=== PATIENT | male | born 1970 | race Caucasian/White ===

== ENCOUNTER 2019-07-24 20:23 | Emergency (ER) | payer MEDICARE, OTHER ==
[~2019-07-24] VITALS: Ht 182.9 cm; Wt 104.2 kg
--- OUTSIDE RECORDS SUMMARY | 2019-07-24 20:31 | XMS REPORT ---
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 Activ e 125612600 Problem AIDS B20 Active 69421927 Problem Benign essential hypertension I10 Active 1032786 Problem History of CMV Z86.19 Active 21777 4002 Problem History of histoplasmosis Z86.19 Acti ve 74249942453029 Problem Generalized anxiety disorder F41.1 A ctive 02627051 Problem Histoplasmosis B39.9 Active 06020 009 Problem Former smoker Z87.891 Active 748186 6 Problem Syphilis A53.9 Active 77167414 ALLERGIES No Known Allergies ENCOUNTERS Encounter Location Date Diagnosis [address] [id number] Mar, Human immunodeficiency virus (HIV) disea se B20 ; History of CMV Z86.19 and History of histoplasmosis Z86.[address] [id number] Dec, Human immunodeficiency virus (HIV) disea se B20 ; History of CMV Z86.19 and History of histoplasmosis Z86.19 [facility] [place] [address] [place] [address] Aug, [address] [id number] Aug, AIDS B20 ; Syphilis A53.9 and High risk homosexual behavior Z72.52 [facility] [place] [address] [place] [address] May, Benign essential hypertension I10 [address] [address] Mar, [facility] [address] [facility] [place] [phone] Feb, AIDS B20 [facility] [address] [facility] [place] [phone] Feb, AIDS B20 [facility] [address] [place] [address] Jan, [facility] [address] [place] [address] Jan, [facility] [address] [place] [address] Jan, [facility] [address] [place] [address] Jan, [facility] [address] [facility] [place] [phone] Jan, [facility] [address] [id number] Jan, AIDS B20 [facility] [address] [phone] Oct, AIDS B20 [facility] [address] [id number] Aug, AIDS B20 [facility] [address] [place] [address] Aug, [facility] [address] [place] [address] Jul, Benign essential hypertension I10 [facility] [address] [place] [address] Jul, [facility] [address] [id number] May, AIDS B20 [facility] [address] [place] [address] Apr, AIDS B20 [facility] [address] [place] [address] Apr, AIDS B20 [facility] [address] [place] [address] Feb, [facility] [address] [place] [address] Dec, [facility] [address] [phone] Dec, Human immunodeficiency virus (HIV) disea se B20 [facility] [address] [id number] Sep, Human immunodeficiency virus (HIV) disea se B20 ; Benign essential hypertension I10 and Histoplasmosis B39.9 [facility] [address] [id number] June, AIDS B20 [address] [address] Mar, [facility] [address] [id number] Mar, AIDS B20 [place] [facility] [address] [place] [phone] Jan, Human immunodeficiency virus (HIV) disease B20 and Need for pneumococcal vaccine Z23 [address] [address] Dec, Essential hypertension, benign 401.1 [facility] [address] [id number] Nov, AIDS B20 [address] [address] Sep, [address] [id number] Aug, Human immunodeficiency virus (HIV) disea se B20 ; Former smoker Z87.891 and Encounter for immunization Z23 [address] [address] June, [address] [id number] Apr, Human immunodeficiency virus (HIV) disea se B20 ; Benign essential hypertension I10 and Histoplasmosis B39.[address] [address] Mar, [facility] [address] [id number] Feb, Acquired immune deficiency syndrome B20 and Screening examination for sexually transmitted disease Z11.[address] [address] Dec, [address] [place] [address] Dec, [facility] [address] [id number] Nov, Human immunodeficiency virus (HIV) disea se B20 and Benign essential hypertension I10 [facility] [place] [address] [place] [address] Sep, [facility] [place] [address] [place] [address] Sep, [facility] [place] [address] [place] [address] Sep, [address] [id number] June, Human immunodeficiency virus (HIV) disea se 042 and Need for pneumococcal vaccination V03.82 [facility] [place] [address] [place] [address] Apr, [address] [address] Apr, [address] [address] Mar, [address] [id number] Feb, Acquired immune deficiency syndrome (AID S) [address] [address] Feb, Human immunodeficiency virus (HIV) disea se [address] [address] Dec, [facility] [address] [id number] Nov, Human immunodeficiency virus (HIV) disea se 042 ; 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 and Essential hypertension, benign 401.1 [facility] [place] [address] [place] [address] Oct, Nausea & vomiting 787.01 [facility] [place] [address] [place] [address] Oct, [facility] [address] [facility] [address] [place] [phone] 1 Oct, Unspecified Histoplasmosis without mention of manifestation 115.90 [facility] [address] [place] [address] 10 Oct, 2013 [facility] [address] [place] [address] 09 Oct, 2013 Nausea & vomiting 787.01 [facility] [place] [facility] [address] [facility] [address] [place] [phone] 2 9 Sep, 2013 [facility] [place] [facility] [address] [facility] [address] [place] [phone] 2 8 Sep, 2013 [facility] [place] [facility] [address] [facility] [address] [place] [id number] 2 0 Jul, 2013 [facility] [place] [facility] [address] [facility] [address] [place] [phone] 0 7 May, 2013 [facility] [address] [place] [address] May, [facility] [address] [place] [address] Feb, [facility] [address] [place] [address] Nov, [facility] [address] [place] [address] Aug, [facility] [address] [place] [address] May, [facility] [address] [place] [address] Dec, [facility] [address] [place] [address] Sep, [facility] [address] [place] [address] June, [facility] [address] [place] [address] Mar, [facility] [place] [facility] [address] [facility] [address] [place] [phone] 0 7 Nov, 2010 IMMUNIZATIONS No Known Immunizations SOCIAL HISTORY Never Assessed REASON FOR VISIT [facility] HIV f/u PLAN OF CARE Activity Details Follow Up 3 Months, prn Reason: Pending Test Human Immunodeficiency Virus (HIV-1), Quantitative, Real-time PCR (graph) 58853 Pending Test Cytomegalovirus (CMV) Ab, Ig G Pending Test Cytomegalovirus (CMV) Ab, Ig M Pending Test Cytomegalovirus (CMV), Quant itative, Plasma, PCR 13622 Pending Test Metabolic Panel (14), Robert hernandes (CMP) 16193 Pending Test CD4/CD8 Ratio Profile 68092 Pending Test Histoplasma Galactomannan An tigen EIA, Urine 62871 VITAL SIGNS Height 72 in 2019-03-18 Weight 222 lbs 2019-03-18 Temperature 98.0 degrees Fahrenheit 2019-03-18 Heart Rate 83 /min 2019-03-18 Respiratory Rate 18 /min 2019-03-18 Oximetry 96 % 2019-03-18 BMI 30.11 kg/m2 2019-03-18 Blood pressure systolic 120 mm Hg 2019-03-18 Blood pressure diastolic 82 mm Hg 2019-03-18 MEDICATIONS Medication Instructions Dosage Frequency Start Date End Date Duration S tatus Lisinopril 20 MG TAKE 1 TABLET BY MOUTH ONCE A DAY. 30 Active BusPIRone HCl 10 MG TAKE ONE TABLET BY MOUTH 3 TIMES A DAY. 30 Active Descovy 200-25 mg Orally Once a day 1 Tablet 24h 30 Active Isentress 400 MG TAKE 1 TABLET (400 MG) BY MOUTH 2 TIMES DAILY. 30 Active RESULTS No Results PROCEDURES Procedure Date Ordered Result Body Site Billed by outside source Mar 18, 2019 INSTRUCTIONS MEDICATIONS ADMINISTERED No Known Medications MEDICAL (GENERAL) HISTORY Type Description Date Medical History AIDS Medical History Hx histoplasmosis Medical History Hx Kaposi's sarcoma Medical History HTN Medical History Anxiety Surgical History lipoma removal 2009
--- OUTSIDE RECORDS SUMMARY | 2019-07-24 20:32 | XMS REPORT ---
Author Author Tony Lizarraga [facility] eClinical[employer] Address Unknown Phone Unavailable Care Team Providers Care Lay Out Maker Name Role Phone Deana Lizarraga CP Unavailable Allergies No Known Allergies Problems Problem Type Condition ICD-9 Code Onset Dates Condition Statu s Problem Screening examination for venereal disease V74.5 Inactive Problem Need for prophylactic vaccin ation and inoculation against viral hepatitis V05.3 Inactive Problem Anxiety state, unspecified 300.00 A ctive Problem Unspecified Histoplasmosis without mention of manifest ation 115.90 Inactive Problem Kaposi's sarcoma of skin 176.0 Karin ctive Problem Acquired immune deficiency syndrome (AIDS) 042 Active Problem halfway (current) use of opiate analgesic V58.69 Active Problem Need for prophylactic vaccination and inoculation, Inf luenza V04.81 Inactive Problem Ijpplnewtp-wclueat-ryshjdazp, combined [DTP] [DtaP] V0 6.1 Inactive Problem Need for prophylactic vaccin ation against streptococcus pneumoniae (pneumococcus) V03.82 Inactive Problem Essential hypertension, benign 401.1 Active Problem Unspecified essential hypertension 401.9 Inactive Problem Elevated blood pressure reading without diagnosi s of hypertension 796.2 Inactive Medications No Known Medications Results No Known Results Summary Purpose eClinicalWorks Submission
--- OUTSIDE RECORDS SUMMARY | 2019-07-24 20:32 | XMS REPORT ---
Author Tony Costello Organization [employer] Address Unknown Phone Unavailable Care Team Providers Care Senior Manager Asset Protection Name Role Phone Bia Tineo CP Unavailable Allergies No Known Allergies Problems Problem Type Condition ICD-9 Code Onset Dates Condition Statu s Problem Screening examination for venereal disease V74.5 Inactive Problem Need for prophylactic vaccin ation and inoculation against viral hepatitis V05.3 Inactive Problem Anxiety state, unspecified 300.00 A ctive Problem Unspecified Histoplasmosis without mention of manifest ation 115.90 Inactive Problem Kaposi's sarcoma of skin 176.0 Joseph ctive Problem Acquired immune deficiency syndrome (AIDS) 042 Active 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
--- OUTSIDE RECORDS SUMMARY | 2019-07-24 20:32 | XMS REPORT ---
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 Activ e 616971001 Problem AIDS B20 Active 61495801 Problem Histoplasmosis B39.9 Active 97829 009 ALLERGIES No Information ENCOUNTERS Encounter Location Date Diagnosis [address] [address] Aug, [facility] [address] [facility] [address] [place], [place] [phone] Aug, AIDS B20 ; Syphilis A53.9 an d High risk homosexual behavior Z72.[address] [address] May, Benign essential hypertension I10 [address] [address] Mar, [facility] [address] [place] [address] S [id number] Feb, AIDS B20 [facility] [address] [place] [address] S [id number] Feb, AIDS B20 [address] [address] Jan, [address] [address] Jan, [address] [address] Jan, [facility] [address] [place] [address] Jan, [facility] [address] [place], [place] [address] S [id number] Jan, [place] [facility] [address] [place] [address] [address] [place] [phone] Jan, AIDS B20 [place] [facility] [address] [place] [address] [address] [place] [phone] Oct, AIDS B20 [facility] [facility] [address] [place] [phone] Aug, AIDS B20 [facility] [address] [place] [address], [place] [address] Aug, [facility] [address] [place] [address], [place] [address] Jul, Benign essential hypertension I10 [facility] [address] [place] [address], [place] [address] Jul, [facility] [address] [place] [phone] May, AIDS B20 [facility] [address] [place] [address], [place] [address] Apr, AIDS B20 [facility] [address] [place] [address], [place] [address] Apr, AIDS B20 [facility] [address] [place] [address] Feb, [facility] [address] [place] [address], [place] [address] Dec, [facility] [facility] [address] [place] [id number] Dec, Human immunodeficiency virus (HIV) disease B20 [facility] [address] [place] [phone] Sep, Human immunodeficiency virus (HIV) disease B20 ; Benign essential hypertension I10 and Histoplasmosis B39.9 [place] [facility] [address] [place] [address] [address] [place] [phone] June, AIDS B20 [facility] [address] [place] [address] Mar, [place] [facility] [address] [place] [id number] Mar, AIDS B20 [place] [facility] [address] [place] [phone] Jan, Human immunodeficiency virus (HIV) disease B20 and Need for pneumococcal vaccine Z23 [facility] [address] [place] [address] Dec, Essential hypertension, benign 401.1 [place] [facility] [address] [place] [phone] Nov, AIDS B20 [place] [address] [place] [address] Sep, [facility] [facility] [address] [id number] Aug, Human immunodeficiency virus (HIV) disease B20 ; Former smoker Z87.891 and Encounter for immunization Z23 [address] [address] June, [facility] [facility] [address] [id number] Apr, Human immunodeficiency virus (HIV) disease B20 ; Benign essential hypertension I10 and Histoplasmosis B39.[address] [address] Mar, [facility] [facility] [address] [id number] Feb, Acquired immune deficiency s yndrome B20 and Screening examination for sexually transmitted disease Z11.[address] [address] Dec, [place] [address] [place] [address] Dec, [facility] [facility] [address] [id number] Nov, Human immunodeficiency virus (HIV) disease B20 and Benign essential hypertension I10 [place] [address] [place] [address] Sep, [place] [address] [place] [address] Sep, [facility] [address] [place] [address] Sep, [facility] [facility] [address] [id number] June, Human immunodeficiency virus (HIV) disease 042 and Need for pneumococcal vaccination V03.82 [facility] [address] [place] [address] Apr, [facility] [address] [place] [address] Apr, [facility] [address] [place] [address] Mar, [facility] [address] [phone] Feb, Acquired immune deficiency s yndrome (AIDS) 042 [facility] [address] [place] [address] Feb, Human immunodeficiency virus (HIV) disea se 042 [facility] [address] [place] [address] Dec, [facility] [address] [id number] Nov, Human immunodeficiency virus (HIV) disease 042 ; 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.69 and Essential hypertension, benign 401.1 [facility] [address] [place] [address] Oct, Nausea & vomiting 787.01 [facility] [address] [place] [address] Oct, [facility] [address] [facility] [address] [place], [place] [phone] Oct, Unspecified Histoplasmosis without mention of manifestation 115.90 [facility] [address] [place] [address] Oct, [facility] [address] [place] [address] 09 Oct, 2013 Nausea & vomiting 787.01 [facility] [place] [facility] [address] [facility] [address] [place] [id number] 2 9 Sep, 2013 [facility] [place] [facility] [address] [facility] [address] [place] [phone] 2 8 Sep, 2013 [facility] [place] [facility] [address] [facility] [address] [place] [phone] 2 0 Jul, 2013 [facility] [place] [facility] [address] [facility] [address] [place] [phone] 0 7 May, 2013 [facility] [address] [facility] [place] [place] [address] May, [facility] [address] [facility] [place] [address] Feb, [facility] [address] [facility] [place] [address] Nov, [facility] [address] [facility] [place] [place] [address] Aug, [facility] [address] [facility] [place] [place] [address] May, [facility] [address] [facility] [place] [place] [address] Dec, [facility] [address] [facility] [place] [place] [address] Sep, [facility] [address] [facility] [place] [address] June, [facility] [address] [facility] [place] [address] Mar, [facility] [place] [facility] [address] [facility] [address] [place] [phone] 0 7 Nov, 2010 IMMUNIZATIONS No Known Immunizations SOCIAL HISTORY Never Assessed REASON FOR VISIT labs PLAN OF CARE VITAL SIGNS MEDICATIONS Unknown Medications RESULTS No Results PROCEDURES No Known procedures INSTRUCTIONS MEDICATIONS ADMINISTERED No Known Medications MEDICAL (GENERAL) HISTORY Type Description Date Medical History AIDS Medical History Hx histoplasmosis Medical History Hx Kaposi's sarcoma Medical History HTN Medical History Anxiety Surgical History lipoma removal 2009
--- OUTSIDE RECORDS SUMMARY | 2019-07-24 20:32 | XMS REPORT ---
Author Tony Isaac [facility] eClinicalWorks Address Unknown Phone Unavailable Care Team Providers Care Cartridge Assembler Name Role Phone Deana Lizarraga CP Unavailable Allergies, Adverse Reactions, Alerts Substance Reaction Event Type N.K.D.A. 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 (ANA DE LEON) Ondansetron HCl [facility] [address]-88 8 MG Orally three times daily Oct 26, 2013 1 tablet as needed Isentress [facility] [address]-11 400 MG Oral 1 (one) two times holly ly May 14, 2012 not defined Lisinopril [facility] [address]-04 20 MG Orally 1 (one) QD August 24, 2013 1 tablet Procedures Procedure Coding System Code Date PNEUMOCOCCAL VACC 13 EDIS IM CPT-4 14222 June 23, 2014 ADMN PNEUMCOC VAC NO FEE SCHED DAY CPT-4 G0009 June 23, 2014 Office Visit, Est Pt., Level 3 CPT-4 95411 M 2014 Vital Signs Date/Time: June 23, 2014 Temperature 97.1 F Weight 221.3 lbs Height 72 in Respiratory Rate 18 /min Cardiac Monitoring Heart Rate 77 /min Blood Pressure Diastolic 94 mm Hg Blood Pressure Systolic 135 mm Hg BMI 30.01 Index Results No Known Results Immunizations Vaccine Administration Date Pneumococcal conjugate PCV 13 June 23, 2014 Summary Purpose eClinicalWorks Submission
--- OUTSIDE RECORDS SUMMARY | 2019-07-24 20:32 | XMS REPORT ---
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
--- OUTSIDE RECORDS SUMMARY | 2019-07-24 20:32 | XMS REPORT ---
Author Tony Isaac [facility] e[employer] Address Unknown Phone Unavailable Care Team Providers Care Rn Spine Name Role Phone Deana Lizarraga CP Unavailable Allergies, Adverse Reactions, Alerts Substance Reaction Event Type N.K.D.A. Info Not Available Non Drug Allergy Problems Problem Type Condition ICD-9 Code Onset Dates Condition Statu s Problem Screening examination for venereal disease V74.5 Inactive Problem Need for prophylactic vaccin ation and inoculation against viral hepatitis V05.3 Inactive Problem Anxiety state, unspecified 300.00 A ctive Problem Unspecified Histoplasmosis without mention of manifest ation 115.90 Inactive Problem Kaposi's sarcoma of skin 176.0 [place] ctive Problem Acquired immune deficiency syndrome (AIDS) 042 Active Problem halfway (current) use of opiate analgesic V58.69 Active Problem Need for prophylactic vaccination and inoculation, Inf luenza V04.81 Inactive Problem Munprkdhgy-cgsembl-unvillozg, combined [DTP] [DtaP] V0 6.1 Inactive Problem Need for prophylactic vaccin ation against streptococcus pneumoniae (pneumococcus) V03.82 Inactive Assessment Acquired immune deficiency syndrome (AIDS) 042 Active Problem Essential hypertension, benign 401.1 Active Problem Unspecified essential hypertension 401.9 Inactive Problem Elevated blood pressure reading without diagnosi s of hypertension 796.2 Inactive Medications Medication Code System Code Instructions Start Date End Date Status Dosage BusPIRone HCl [facility] [address]-65 10 MG Orally Three times a day 1 tablet Truvada [facility] [address]-87 200-300 MG Orally Once a day May 14 3 1 tablet Truvada [facility] [address]-55 200-300 MG Oral 1 (one) daily May 14 13 not defined Lisinopril [facility] [address]-24 20 MG Orally 1 (one) QD August 24, 2013 1 tablet Ondansetron HCl [facility] [address]-72 8 MG Orally three times daily Oct 26, 2013 1 tablet as needed Itraconazole [facility] [address]-47 100 MG Orally two times daily S ept 2013May 18, 2014 2 capsules after a meal Isentress [facility] [address]-35 400 MG Oral 1 (one) two times holly ly May 14, 2012 not defined Procedures Procedure Coding System Code Date DOC MEDS VERIFIED W/PT OR RE CPT-4 G8427 Mar 10, 2014 MEDS DOCUMENT W/O VERIFICA CPT-4 G8428 Feb 112014 Office Visit, New Pt., Level 3 CPT-4 96040 J 2014 LAB BILLED BY [facility] CPT-4 NOBLL Mar 10, 2014 Vital Signs Date/Time: Mar 10, 2014 Temperature 98.6 F Weight 255.4 lbs Height 72 in Respiratory Rate 24 /min Cardiac Monitoring Heart Rate 67 /min Blood Pressure Diastolic 92 mm Hg Blood Pressure Systolic 145 mm Hg BMI 34.63 Index Results No Known Results Summary Purpose eClinicalWorks Submission
--- OUTSIDE RECORDS SUMMARY | 2019-07-24 20:32 | XMS REPORT ---
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 Activ e 287727116 Problem Former smoker Z87.891 Active 351423 6 Problem Histoplasmosis B39.9 Active 37700 009 ALLERGIES No Known Allergies ENCOUNTERS Encounter Location Date Diagnosis [facility] [address] [place] [id number] Jan, AIDS B20 [facility] [address] [id number] Oct, AIDS B20 [facility] [address] [id number] Aug, AIDS B20 [address] [address] Aug, [address] [address] Jul, Benign essential hypertension I10 [address] [address] Jul, [facility] [address] [id number] May, AIDS B20 [address] [address] Apr, AIDS B20 [address] [address] Apr, AIDS B20 [address] [place] [address] Feb, [facility] [address] [place] [address] Dec, [facility] [address], [place] [phone] Dec, Human immunodeficiency virus (HIV) disease B20 [facility] [address], [place] [id number] Sep, Human immunodeficiency virus (HIV) disease B20 ; Benign essential hypertension I10 and Histoplasmosis B39.9 [facility] [address], [place] [id number] June, AIDS B20 [address] [address] Mar, [facility] [address], [place] [id number] Mar, AIDS B20 [facility] [address] [id number] Jan, Human immunodeficiency virus (HIV) disease B20 and Need for pneumococcal vaccine Z23 [address] [address] Dec, Essential hypertension, benign 401.1 [facility] [address], [place] [id number] Nov, AIDS B20 [address] [address] Sep, [facility] [address] [id number] Aug, Human immunodeficiency virus (HIV) disease B20 ; Former smoker Z87.891 and Encounter for immunization Z23 [address] [address] June, [facility] [address] [id number] Apr, Human immunodeficiency virus (HIV) disease B20 ; Benign essential hypertension I10 and Histoplasmosis B39.[address] [address] Mar, [facility] [address] [id number] Feb, Acquired immune deficiency s yndrome B20 and Screening examination for sexually transmitted disease Z11.[address] [address] Dec, [address] [address] Dec, [facility] [address] [id number] Nov, Human immunodeficiency virus (HIV) disease B20 and Benign essential hypertension I10 [address] [address] Sep, [address] [address] Sep, [address] [address] Sep, [address] [id number] June, Human immunodeficiency virus (HIV) disease 042 and Need for pneumococcal vaccination V03.[address] [address] Apr, [address] [address] Apr, [address] [address] Mar, [address] [id number] Feb, Acquired immune deficiency s yndrome (AIDS) [address] [address] Feb, Human immunodeficiency virus (HIV) disea se [address] [address] Dec, [facility] [address] [id number] Nov, Human immunodeficiency virus (HIV) disease 042 ; [facility] (current) use of opiate analgesic V58.69 and Essential hypertension, benign 401.1 [facility] [address] [place] [facility] [place] [address] 17 Oct, 2013 Nausea & vomiting 787.01 [facility] [address] [place] [address] 12 Oct, 2013 [facility] [place] [facility] [address] [facility] [address] [place] [id number] 1 1 Oct, 2013 Unspecified Histoplasmosis without mention of manifestation 115.90 [facility] [address] [place] [facility] [place] [address] 10 Oct, 2013 [facility] [address] [place] [facility] [place] [address] 09 Oct, 2013 Nausea & vomiting 787.01 [facility] [place] [facility] [address] [facility] [address] [place] [id number] 2 9 Sep, 2013 [facility] [place] [facility] [address] [facility] [address] [place] [id number] 2 8 Sep, 2013 [facility] [place] [facility] [address] [facility] [address] [place] [id number] 2 0 Jul, 2013 [facility] [place] [facility] [address] [facility] [address] [place] [id number] 0 7 May, 2013 [facility] [address] [place] [address] 04 May, 2013 [facility] [address] [place] [address] Feb, [facility] [address] [place] [address] Nov, [facility] [address] [place] [address] Aug, [facility] [address] [place] [address] May, [facility] [address] [place] [address] Dec, [facility] [address] [place] [address] Sep, [facility] [address] [place] [address] June, [facility] [facility] [address] 17 Mar, 2011 [facility] [address] [facility] [address] [place] [phone] 0 Nov, IMMUNIZATIONS No Known Immunizations SOCIAL HISTORY Never Assessed REASON FOR VISIT HIV follow up PLAN OF CARE Activity Details Follow Up 4 Months Reason: Pending Test Human Immunodeficiency Virus (HIV-1), Quantitative, Real-time PCR (graph) 80355 Pending Test Rapid Plasma Reagin (RPR), T est w/ Reflex to Quant RPR/Confirm Treponema pallidum Antibodies 46592 Pending Test Metabolic Panel (14), Compre hensive (CMP) 18961 Pending Test CD4/CD8 Ratio Profile 50706 VITAL SIGNS Height 72 in 2018-01-15 Weight 213 lbs 2018-01-15 Temperature 98.1 degrees Fahrenheit 2018-01-15 Heart Rate 69 /min 2018-01-15 Respiratory Rate 16 /min 2018-01-15 Oximetry 98 % 2018-01-15 BMI 28.88 kg/m2 2018-01-15 Blood pressure systolic 126 mm Hg 2018-01-15 Blood pressure diastolic 86 mm Hg 2018-01-15 MEDICATIONS Medication Instructions Dosage Frequency Start Date End Date Duration S tatus Lisinopril 20 MG Orally once a day 1 tablet 24h 30 Active Descovy 200-25 mg Orally Once a day 1 Tablet 24h 30 Active Isentress 400 MG Orally Twice a day 1 tablet 12h 30 days Active Itraconazole 200 MG Orally two times daily 1 capsules after a meal 30 Active BusPIRone HCl 10 MG TAKE ONE TABLET BY MOUTH 3 TIMES A DAY. 30 days Active RESULTS No Results PROCEDURES Procedure Date Ordered Result Body Site Billed by outside source Jan 15, 2018 INSTRUCTIONS MEDICATIONS ADMINISTERED No Known Medications MEDICAL (GENERAL) HISTORY Type Description Date Medical History Acquired immune deficiency syndrome ; Medical History HISTOPLASMOSIS NOS (115.90) ; Medical History Cancerous red or purple patc hes on skin , (Desc:Kaposi's sarcoma of skin) ; Medical History Benign hypertension , (Desc:Hypertension , benign) ; Medical History Anxiety ; Surgical History lipoma removal 2009
--- OUTSIDE RECORDS SUMMARY | 2019-07-24 20:32 | XMS REPORT ---
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 Activ e 501001640 Problem Generalized anxiety disorder F41.1 A ctive 68250407 Problem Histoplasmosis B39.9 Active 61464 009 Problem AIDS B20 Active 60792465 ALLERGIES No Information ENCOUNTERS Encounter Location Date Diagnosis [address] [address] Jan, [facility] [address] [place] [phone] Jan, [facility] [address] [id number] Jan, AIDS B20 [facility] [address] [id number] Oct, AIDS B20 [facility] [address] [place] [id number] Aug, AIDS B[facility] [address] [address] Aug, [address] [address] Jul, Benign essential hypertension I10 [address] [address] Jul, [facility] [address] [place] [id number] May, AIDS B20 [address] [place] [address] Apr, AIDS B20 [facility] [address] [place] [address] Apr, AIDS B20 [facility] [address] [place] [address] Feb, [facility] [address] [place] [address] Dec, [facility] [place] [facility] [address] [place] [address] [address] [place] [id number] Dec, Human immunodeficiency virus (HIV) disease B20 [facility] [address] [facility] [place] [id number] Sep, Human immunodeficiency virus (HIV) disease B20 ; Benign essential hypertension I10 and Histoplasmosis B39.9 [place] [facility] [address] [place] [address] [address] [place] [id number] June, AIDS B20 [address] [address] Mar, [facility] [address] [place] [id number] Mar, AIDS B20 [facility] [address] [place] [id number] Jan, Human immunodeficiency virus (HIV) disease B20 and Need for pneumococcal vaccine Z23 [facility] [address] [place] [address] Dec, Essential hypertension, benign 401.1 [facility] [address] [place] [id number] Nov, AIDS B20 [facility] [address] [place] [address] Sep, [facility] [address] [place] [id number] Aug, Human immunodeficiency virus (HIV) disease B20 ; Former smoker Z87.891 and Encounter for immunization Z23 [facility] [address] [place] [address] June, [facility] [address] [place] [id number] Apr, Human immunodeficiency virus (HIV) disease B20 ; Benign essential hypertension I10 and Histoplasmosis B39.[address] [address] Mar, [facility] [address] [id number] Feb, Acquired immune deficiency s yndrome B20 and Screening examination for sexually transmitted disease Z11.[address] [address] Dec, [address] [address] Dec, [facility] [address] [id number] Nov, Human immunodeficiency virus (HIV) disease B20 and Benign essential hypertension I10 [address] [address] Sep, [address] [address] Sep, [address] [address] Sep, [facility] [address] [id number] June, Human immunodeficiency virus (HIV) disease 042 and Need for pneumococcal vaccination V03.[address] [address] Apr, [address] [address] Apr, [address] [address] Mar, [facility] [address] [id number] Feb, Acquired immune deficiency s yndrome (AIDS) [address] [address] Feb, Human immunodeficiency virus (HIV) disea se [address] [address] Dec, [facility] [place] [facility] [address] [facility] [place] [id number] Nov, Human immunodeficiency virus (HIV) disease 042 ; [employer] (current) use of opiate analgesic V58.69 and Essential hypertension, benign 401.1 [facility] [address] [place] [address] 17 Oct, 2013 Nausea & vomiting 787.01 [facility] [address] [place] [address] 12 Oct, 2013 [facility] [place] [facility] [address] [facility] [address] [place] [id number] 1 1 Oct, 2013 Unspecified Histoplasmosis without mention of manifestation 115.90 [facility] [address] [place] [address] 10 Oct, 2013 [facility] [address] [place] [address] 09 Oct, 2013 Nausea & vomiting 787.01 [facility] [place] [facility] [address] [facility] [address] [place] [id number] 2 9 Sep, 2013 [facility] [place] [facility] [address] [facility] [address] [place] [id number] 2 8 Sep, 2013 [facility] [place] [facility] [address] [facility] [address] [place] [id number] 2 0 Jul, 2013 [facility] [address] [facility] [address] [place] [id number] 0 7 May, 2013 [facility] [address] [place] [address] May, [facility] [address] [place] [address] Feb, [facility] [address] [place] [address] Nov, [facility] [address] [place] [address] Aug, [facility] [address] [place] [address] May, [facility] [address] [place] [address] Dec, [facility] [address] [place] [address] Sep, [facility] [address] [place] [address] June, [facility] [address] [place] [address] 17 Mar, 2011 [facility] [address] [facility] [address] [place] [phone] 0 7 Nov, 2010 IMMUNIZATIONS No Known Immunizations SOCIAL HISTORY Never Assessed REASON FOR VISIT * PLAN OF CARE VITAL SIGNS MEDICATIONS Unknown [...]
--- OUTSIDE RECORDS SUMMARY | 2019-07-24 20:32 | XMS REPORT ---
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 Activ e 051418935 Problem Generalized anxiety disorder F41.1 A ctive 54860469 Problem Histoplasmosis B39.9 Active 42780 009 Problem AIDS B20 Active 52131325 ALLERGIES No Information ENCOUNTERS Encounter Location Date Diagnosis [address] [address] Jan, [facility] [address] [place] [id number] Jan, [facility] [address] [id number] Jan, AIDS B20 [facility] [address] [id number] Oct, AIDS B20 [facility] [address] [place] [id number] Aug, AIDS B20 [address] [address] Aug, [address] [address] Jul, Benign essential hypertension I10 [address] [address] Jul, [facility] [address] [place] [id number] May, AIDS B20 [address] [place] [address] Apr, AIDS B20 [facility] [address] [place] [address] Apr, AIDS B20 [facility] [address] [place] [address] Feb, [facility] [address] [place] [address] Dec, [facility] [address] [place] [address] [address] [place] [id number] Dec, Human immunodeficiency virus (HIV) disease B20 [facility] [address] [facility] [place] [id number] Sep, Human immunodeficiency virus (HIV) disease B20 ; Benign essential hypertension I10 and Histoplasmosis B39.9 [facility] [address] [place] [address] [place] [id number] June, AIDS B20 [address] [address] Mar, [facility] [address] [place] [id number] Mar, AIDS B20 [facility] [address] [place] [id number] Jan, Human immunodeficiency virus (HIV) disease B20 and Need for pneumococcal vaccine Z23 [facility] [address] [place] [address] Dec, Essential hypertension, benign 401.1 [facility] [address] [place] [id number] Nov, AIDS B20 [facility] [address] [place] [address] Sep, [facility] [address] [place] [id number] Aug, Human immunodeficiency virus (HIV) disease B20 ; Former smoker Z87.891 and Encounter for immunization Z23 [facility] [address] [place] [address] June, [facility] [address] [place] [id number] Apr, Human immunodeficiency virus (HIV) disease B20 ; Benign essential hypertension I10 and Histoplasmosis B39.[address] [address] Mar, [facility] [address] [id number] Feb, Acquired immune deficiency s yndrome B20 and Screening examination for sexually transmitted disease Z11.[address] [address] Dec, [address] [address] Dec, [facility] [address] [id number] Nov, Human immunodeficiency virus (HIV) disease B20 and Benign essential hypertension I10 [address] [address] Sep, [address] [address] Sep, [address] [address] Sep, [facility] [address] [id number] June, Human immunodeficiency virus (HIV) disease 042 and Need for pneumococcal vaccination V03.[address] [address] Apr, [address] [address] Apr, [address] [address] Mar, [facility] [address] [id number] Feb, Acquired immune deficiency s yndrome (AIDS) [address] [address] Feb, Human immunodeficiency virus (HIV) disea se [address] [address] Dec, [place] [facility] [address] [facility] [place] [id number] Nov, Human immunodeficiency virus (HIV) disease 042 ; 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) use of opiate analgesic V58.69 and Essential hypertension, benign 401.1 [facility] [address] [place] [address] 17 Oct, 2013 Nausea & vomiting 787.01 [facility] [address] [place] [address] 12 Oct, 2013 [facility] [place] [facility] [address] [facility] [address] [place] [id number] 1 1 Oct, 2013 Unspecified Histoplasmosis without mention of manifestation 115.90 [facility] [address] [place] [address] 10 Oct, 2013 [facility] [address] [place] [address] 09 Oct, 2013 Nausea & vomiting 787.01 [facility] [place] [facility] [address] [facility] [address] [place] [id number] 2 9 Sep, 2013 [facility] [place] [facility] [address] [facility] [address] [place] [id number] 2 8 Sep, 2013 [facility] [place] [facility] [address] [facility] [address] [place] [id number] 2 0 Jul, 2013 [facility] [address] [facility] [address] [place] [id number] 0 7 May, 2013 [facility] [address] [place] [address] May, [facility] [address] [place] [address] Feb, [facility] [address] [place] [address] Nov, [facility] [address] [place] [address] Aug, [facility] [address] [place] [address] May, [facility] [address] [place] [address] Dec, [facility] [address] [place] [address] Sep, [facility] [address] [place] [address] June, [facility] [address] [place] [address] 17 Mar, 2011 [facility] [address] [facility] [address] [place], [place] [id number] 0 7 Nov, 2010 IMMUNIZATIONS No Known Immunizations SOCIAL HISTORY Never Assessed REASON FOR VISIT resched shots PLAN OF CARE VITAL SIGNS MEDICATIONS Unknown [...]
--- OUTSIDE RECORDS SUMMARY | 2019-07-24 20:32 | XMS REPORT ---
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 Activ e [id number] Problem AIDS B20 Active 42218822 Problem Benign essential hypertension I10 Active 0409569 Problem History of CMV Z86.19 Active 07750 4002 Problem History of histoplasmosis Z86.19 Acti ve [id number] Problem Generalized anxiety disorder F41.1 A ctive 82999927 Problem Histoplasmosis B39.9 Active 09267 009 Problem Former smoker Z87.891 Active 783563 6 Problem Syphilis A53.9 Active 91573021 ALLERGIES No Known Allergies ENCOUNTERS Encounter Location Date Diagnosis [address] [id number] Dec, Human immunodeficiency virus (HIV) disea se B20 ; History of CMV Z86.19 and History of histoplasmosis Z86.[address] [address] Aug, [facility] [address] [id number] Aug, AIDS B20 ; Syphilis A53.9 and High risk homosexual behavior Z72.[address] [address] May, Benign essential hypertension I10 [address] [address] Mar, [facility] [address] [place] [address] S [id number] Feb, AIDS B20 [facility] [address] [place] [address], S [phone] Feb, AIDS B20 [facility] [address] [place] [address] Jan, [facility] [address] [place] [address] Jan, [facility] [address] [place] [address] Jan, [facility] [address] [place] [address] Jan, [facility] [address] [place] [address], [place] [phone] Jan, [facility] [address] , [place] [id number] Jan, AIDS B20 [facility] [address] , [place] [id number] Oct, AIDS B20 [facility] [address] , [place] [id number] Aug, AIDS B20 [facility] [address] [place] [address] Aug, [facility] [address] [place] [address] Jul, Benign essential hypertension I10 [facility] [address] [place] [address] Jul, [facility] [address] [id number] May, AIDS B20 [facility] [address] [place] [address] Apr, AIDS B20 [facility] [address] [place] [address] Apr, AIDS B20 [facility] [address] [place] [address] Feb, [facility] [address] [place] [address] Dec, [facility] [address] [id number] Dec, Human immunodeficiency virus (HIV) disea se B20 [facility] [address] [id number] Sep, Human immunodeficiency virus (HIV) disea se B20 ; Benign essential hypertension I10 and Histoplasmosis B39.9 [facility] [address] [id number] June, AIDS B20 [address] [address] Mar, [address] [id number] Mar, AIDS B20 [facility] [address] [place], [place] [id number] Jan, Human immunodeficiency virus (HIV) disease B20 and Need for pneumococcal vaccine Z23 [address] [address] Dec, Essential hypertension, benign 401.[address] [id number] Nov, AIDS B20 [address] [address] Sep, [address] [id number] Aug, Human immunodeficiency virus (HIV) disea se B20 ; Former smoker Z87.891 and Encounter for immunization Z23 [address] [address] June, [address] [id number] Apr, Human immunodeficiency virus (HIV) disea se B20 ; Benign essential hypertension I10 and Histoplasmosis B39.[address] [address] Mar, [address] [id number] Feb, Acquired immune deficiency syndrome B20 and Screening examination for sexually transmitted disease Z11.[address] [address] Dec, [address] [address] Dec, [address] [id number] Nov, Human immunodeficiency virus (HIV) disea se B20 and Benign essential hypertension I10 [facility] [address] [place] [address] Sep, [facility] [address] [place] [address] Sep, [facility] [address] [place] [address] Sep, [facility] [address] [place] [id number] June, Human immunodeficiency virus (HIV) disea se 042 and Need for pneumococcal vaccination V03.82 [facility] [address] [place] [address] Apr, [facility] [address] [place] [address] Apr, [facility] [address] [place] [address] Mar, [facility] [address] [place] [id number] Feb, Acquired immune deficiency syndrome (AID S) 042 [facility] [address] [place] [address] Feb, Human immunodeficiency virus (HIV) disea se 042 [facility] [address] [place] [address] Dec, [facility] [address] [place] [phone] Nov, Human immunodeficiency virus (HIV) disea se 042 ; care home (current) use of opiate analgesic V58.69 and Essential hypertension, benign 401.1 [facility] [address] [place] [address] Oct, Nausea & vomiting 787.01 [facility] [address] [place] [address] Oct, [facility] [address] [facility] [address] [place] [phone] 1 Oct, Unspecified Histoplasmosis without mention of manifestation 115.90 [facility] [address] [place] [address] Oct, [facility] [address] [place] [address] 09 Oct, 2013 Nausea & vomiting 787.01 [facility] [address] [facility] [address] [place] [id number] 2 9 Sep, 2013 [facility] [facility] [address] [facility] [address] [place] [id number] 2 8 Sep, 2013 [facility] [facility] [address] [facility] [address] [place] [id number] 2 0 Jul, 2013 [facility] [place] [facility] [address] [facility] [address] [place] [phone] 0 7 May, 2013 [facility] [address] [facility] [place] [address] May, [facility] [address] [facility] [place] [address] Feb, [facility] [address] [facility] [place] [address] Nov, [facility] [address] [facility] [place] [address] Aug, [facility] [address] [facility] [place] [address] May, [facility] [address] [facility] [place] [address] Dec, [facility] [address] [facility] [place] [address] Sep, [facility] [address] [facility] [place] [address] June, [facility] [address] [facility] [place] [address] Mar, [facility] [facility] [address] [facility] [address] [place] [phone] 0 7 Nov, 2010 IMMUNIZATIONS No Known Immunizations SOCIAL HISTORY Never Assessed REASON FOR VISIT [facility] HIV f/u PLAN OF CARE Activity Details Follow Up 03/18/18, prn Reason: VITAL SIGNS Height 72 in 2018-12-17 Weight 226.2 lbs 2018-12-17 Temperature 98.4 degrees Fahrenheit 2018-12-17 Heart Rate 70 /min 2018-12-17 Respiratory Rate 16 /min 2018-12-17 Oximetry 97 % 2018-12-17 BMI 30.67 kg/m2 2018-12-17 Blood pressure systolic 126 mm Hg 2018-12-17 Blood pressure diastolic 74 mm Hg 2018-12-17 MEDICATIONS Medication Instructions Dosage Frequency Start Date End Date Duration S jonathan BusPIRone HCl 10 MG TAKE ONE TABLET BY MOUTH 3 TIMES A DAY. 30 Active Isentress 400 MG TAKE 1 TABLET (400 MG) BY MOUTH 2 TIMES DAILY. 30 Active Descovy 200-25 mg Orally Once a day 1 Tablet 24h 30 Active Lisinopril 20 MG TAKE 1 TABLET BY MOUTH ONCE A DAY. 30 Active RESULTS Name Result Date Reference Range Human Immunodeficiency Virus (HIV-1), Quantitative, Re al-time PCR (graph) [id number] 2018-12-17 HIV-1 RNA by PCR <20 log10 HIV-1 RNA TNP PDF . Cytomegalovirus (CMV) Ab, IgM 2018-12-17 Cytomegalovirus (CMV) Ab, IgM <30.0 0. 0-29.9 Cytomegalovirus (CMV), Quantitative, Plasma, PCR [id number] 2018-12-17 CMV Quant DNA PCR (Plasma) Negative Negat klever log10 CMV Qn DNA Pl TNP Metabolic Panel (14), Comprehensive (CMP) [id number] 2018-12-17 Glucose 95 65-99 BUN 20 6-24 Creatinine 0.97 0.76-1.27 eGFR If NonAfricn Am 92 >59 eGFR If Africn Am 106 >59 BUN/Creatinine Ratio 21 9-20 Sodium 141 134-144 Potassium 5.4 3.5-5.2 Chloride 105 96-106 Carbon Dioxide, Total 23 20-29 Calcium 9.0 8.7-10.2 Protein, Total 7.2 6.0-8.5 Albumin 4.1 3.5-5.5 Globulin, Total 3.1 1.5-4.5 A/G Ratio 1.3 1.2-2.2 Bilirubin, Total <0.2 0.0-1.2 Alkaline Phosphatase 132 39-117 AST (SGOT) 20 0-40 ALT (SGPT) 13 0-44 CD4/CD8 Ratio Profile [id number] 2018-12-17 Absolute CD 4 [place] [phone] % CD 4 Pos. Lymph. 23.0 30.8-58.5 Abs. CD 8 Suppressor 727 109-897 % CD 8 Pos. Lymph. 51.9 12.0-35.5 CD4/CD8 Ratio 0.44 0.92-3.72 WBC 7.6 3.4-10.8 RBC 4.08 4.14-5.80 Hemoglobin 13.4 13.0-17.7 Hematocrit 38.6 37.5-51.0 MCV 95 79-97 MCH 32.8 26.6-33.0 MCHC 34.7 31.5-35.7 RDW 12.1 11.6-14.4 Platelets 234 150-450 Neutrophils 70 Not Estab. Lymphs 19 Not Estab. Monocytes 8 Not Estab. Eos 3 Not Estab. Basos 0 Not Estab. Immature Cells [employer]ONECUT[employer] Neutrophils (Absolute) 5.4 1.4-7.0 Lymphs (Absolute) 1.4 0.7-3.1 Monocytes(Absolute) 0.6 0.1-0.9 Eos (Absolute) 0.2 0.0-0.4 Baso (Absolute) 0.0 0.0-0.2 Immature Granulocytes 0 Not Estab. Immature Grans (Abs) 0.0 0.0-0.1 NRBC [employer]EC[employer] Hematology Comments: [employer]EC[employer] Histoplasma Galactomannan Antigen EIA, Urine 75842 2018-12-17 Histoplasma Gal'fidelina Ag Ur <0.5 <0. 5 ng/mL Disclaimer: Cytomegalovirus (CMV) Ab, IgG 2018-12-17 Cytomegalovirus (CMV) Ab, IgG >10.00 0. 00-0.59 PROCEDURES Procedure Date Ordered Result Body Site Billed by outside source Dec 17, 2018 INSTRUCTIONS MEDICATIONS ADMINISTERED No Known Medications MEDICAL (GENERAL) HISTORY Type Description Date Medical History AIDS Medical History Hx histoplasmosis Medical History Hx Kaposi's sarcoma Medical History HTN Medical History Anxiety Surgical History lipoma removal 2009
--- OUTSIDE RECORDS SUMMARY | 2019-07-24 20:32 | XMS REPORT ---
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 Activ e 049330869 Problem AIDS B20 Active 89134292 Problem Histoplasmosis B39.9 Active 20215 009 ALLERGIES No Information ENCOUNTERS Encounter Location Date Diagnosis [facility] [address] [place] [address] [place] [phone] Aug, [address] [address] May, Benign essential hypertension I10 [address] [address] Mar, [facility] [address] [place] [phone] Feb, AIDS B20 [facility] [address] [place] [phone] Feb, AIDS B20 [address] [address] Jan, [address] [address] Jan, [address] [address] Jan, [address] [address] Jan, [facility] [address] [place] [address] K S [id number] 13 Jan, 2018 [facility] [address] [place] [address] [address] [place] [id number] Jan, AIDS B20 [facility] [address] [place] [address] [address] [place] [id number] Oct, AIDS B20 [facility] [address] [place] [phone] Aug, AIDS B20 [facility] [address] [place] [address], [place] [address] Aug, [facility] [address] [place] [address], [place] [address] Jul, Benign essential hypertension I10 [facility] [address] [place] [address], [place] [address] Jul, [facility] [address] [place] [phone] May, AIDS B20 [facility] [address] [place] [address], [place] [address] Apr, AIDS B20 [facility] [address] [place] [address], [place] [address] Apr, AIDS B20 [facility] [address] [place] [address], [place] [address] Feb, [facility] [address] [place] [address], [place] [address] Dec, [facility] [address] [place] [id number] Dec, Human immunodeficiency virus (HIV) disease B20 [facility] [address] [place] [id number] Sep, Human immunodeficiency virus (HIV) disease B20 ; Benign essential hypertension I10 and Histoplasmosis B39.9 [facility] [address] [place] [id number] June, AIDS B20 [facility] [address] [place] [address], [place] [address] Mar, [facility] [address] [place] [id number] Mar, AIDS B20 [facility] [address] [place], [place] [phone] Jan, Human immunodeficiency virus (HIV) disease B20 and Need for pneumococcal vaccine Z23 [address] [address] Dec, Essential hypertension, benign 401.1 [facility] [address] [place] [id number] Nov, AIDS B20 [address] [address] Sep, [facility] [address] [place] [id number] Aug, Human immunodeficiency virus (HIV) disease B20 ; Former smoker Z87.891 and Encounter for immunization Z23 [address] [address] June, [facility] [address] [id number] Apr, Human immunodeficiency virus (HIV) disease B20 ; Benign essential hypertension I10 and Histoplasmosis B39.[address] [address] Mar, [facility] [address] [id number] Feb, Acquired immune deficiency s yndrome B20 and Screening examination for sexually transmitted disease Z11.[address] [address] Dec, [address] [address] Dec, [address] [id number] Nov, Human immunodeficiency virus (HIV) disease B20 and Benign essential hypertension I10 [address] [address] Sep, [address] [address] Sep, [address] [address] Sep, [facility] [address] [place] [id number] June, Human immunodeficiency virus (HIV) disease 042 and Need for pneumococcal vaccination V03.[address] [facility] [address] [place] [address] Apr, [facility] [address] [place] [address] Apr, 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 [address] [place] [address] Oct, [facility] [address] [id number] 1 1 Oct, 2013 Unspecified Histoplasmosis without mention of manifestation 115.[address] [facility] [address] [place] [address] 10 Oct, [address] [facility] [address] [place] [address] 09 Oct, 2013 Nausea & vomiting 787.01 [facility] [address] [id number] 2 Sep, [facility] [address] [phone] 2 8 Sep, 2013 [facility] [address] [facility] [address] [place] [id number] 2 0 Jul, 2013 [facility] [address] [facility] [address] [place], [place] [phone] 0 7 May, 2013 [facility] [address] [place] [facility] [place] [address] May, [facility] [address] [place] [facility] [place] [address] Feb, [facility] [address] [place] [facility] [place] [address] Nov, [facility] [address] [place] [facility] [place] [address] Aug, [facility] [address] [place] [facility] [place] [address] May, [facility] [address] [place] [facility] [place] [address] Dec, [facility] [address] [place] [facility] [place] [address] Sep, [facility] [address] [place] [facility] [place] [address] June, [facility] [address] [facility] [place] [address] Mar, [facility] [address] [facility] [address] [place], [place] [phone] 0 7 Nov, 2010 IMMUNIZATIONS No Known Immunizations SOCIAL HISTORY Never Assessed REASON FOR VISIT med refill PLAN OF CARE VITAL SIGNS MEDICATIONS Medication Instructions Dosage Frequency Start Date End Date Duration S tatus Itraconazole 200 MG Orally two times daily 1 capsules after a meal 30 Active Lisinopril 20 MG Orally once a day 1 tablet 24h 90 d ays Active Descovy 200-25 mg Orally Once a day 1 Tablet 24h 30 Active Isentress 400 MG Orally Twice a day 1 tablet 12h 30 days Active BusPIRone HCl 10 MG Orally Three times a day TAKE ONE TABLET BY MOUTH 3 TIMES A DAY. 8h 30 days Active RESULTS No Results PROCEDURES No Known procedures [...] History Anxiety ; Surgical History lipoma removal 2010
--- OUTSIDE RECORDS SUMMARY | 2019-07-24 20:32 | XMS REPORT ---
Author Author Tony SANABRIA Organization [employer] Address Unknown Phone Unavailable Care Team Providers Care Placing Judge Name Role Phone ADALID SANABRIA CP Unavailable Allergies No Known Allergies Problems Problem Type Condition ICD-9 Code Onset Dates Condition Statu s Assessment Dental examination V72.2 Active Problem Elevated blood pressure reading without diagnosi s of hypertension 796.2 Active Medications No Known Medications Procedures Procedure Coding System Code Date AMALGAM-ONE SURFACE PRIMARY/PERM CPT-4 D2140 September 01, 2014 AMALGAM-TWO SURFACES PRIMARY/PERM CPT-4 D2150 September 01, 2014 AMALGAM-ONE SURFACE PRIMARY/PERM CPT-4 D2140 September 01, 2014 PULP CAP - INDIRECT CPT-4 D3120 September 01 5 AMALGAM-TWO SURFACES PRIMARY/PERM CPT-4 D2150 September 01, 2014 Results No Known Results Summary Purpose [employer] Submission
--- OUTSIDE RECORDS SUMMARY | 2019-07-24 20:32 | XMS REPORT ---
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 Activ e 845171372 Problem AIDS B20 Active 80812276 Problem Histoplasmosis B39.9 Active 48148 009 ALLERGIES No Information ENCOUNTERS Encounter Location Date Diagnosis [facility] [address] [place] [address] [address] [place] [phone] Aug, AIDS B20 ; Syphilis A53.9 an d High risk homosexual behavior Z72.[address] [address] May, Benign essential hypertension I10 [address] [address] Mar, [facility] [address] [place] [phone] Feb, AIDS B20 [facility] [address] [place] [address] S [id number] Feb, AIDS B20 [address] [address] Jan, [address] [address] Jan, [address] [address] Jan, [address] [address] Jan, [facility] [address] [facility] S [id number] Jan, [place] [facility] [address] [facility] B l[address] [place] [phone] Jan, AIDS B20 [place] [facility] [address] [place] [address] [address] [place], [place] [phone] Oct, AIDS B20 [place] [facility] [address] [place] [phone] Aug, AIDS B20 [facility] [address] [place] [address] Aug, [facility] [address] [place] [address], [place] [address] Jul, Benign essential hypertension I10 [facility] [address] [place] [address], [place] [address] Jul, [place] [facility] [address] [place] [phone] May, AIDS B20 [facility] [address] [place] [address], [place] [address] Apr, AIDS B20 [facility] [address] [place] [address], [place] [address] Apr, AIDS B20 [facility] [address] [place] [address], [place] [address] Feb, [facility] [address] [place] [address] Dec, [place] [facility] [address] [place] [phone] Dec, Human immunodeficiency virus (HIV) disease B20 [place] [facility] [address] [place] [phone] Sep, Human immunodeficiency virus (HIV) disease B20 ; Benign essential hypertension I10 and Histoplasmosis B39.9 [place] [facility] [address] [place] [phone] June, AIDS B20 [facility] [address] [place] [address], [place] [address] Mar, [place] [facility] [address] [phone] Mar, 2016 AIDS B20 [place] [facility] [address] [place] [phone] Jan, Human immunodeficiency virus (HIV) disease B20 and Need for pneumococcal vaccine Z23 [facility] [address] [place] [address] Dec, Essential hypertension, benign 401.1 [place] [facility] [address] [id number] Nov, AIDS B20 [address] [address] Sep, [place] [facility] [address] [phone] Aug, Human immunodeficiency virus (HIV) disease B20 ; Former smoker Z87.891 and Encounter for immunization Z23 [address] [address] June, [place] [facility] [address] [id number] Apr, Human immunodeficiency virus (HIV) disease B20 ; Benign essential hypertension I10 and Histoplasmosis B39.[address] [address] Mar, [place] [facility] [address] [id number] Feb, Acquired immune deficiency s yndrome B20 and Screening examination for sexually transmitted disease Z11.[address] [address] Dec, [address] [address] Dec, [place] [facility] [address] [phone] Nov, Human immunodeficiency virus (HIV) disease B20 and Benign essential hypertension I10 [address] [address] Sep, [address] [address] Sep, [facility] [address] [place] [address] Sep, [place] [facility] [address] [place] [phone] June, Human immunodeficiency virus (HIV) disease 042 and Need for pneumococcal vaccination V03.82 [facility] [address] [place] [address] Apr, [facility] [address] [place] [address] Apr, [facility] [address] [place] [address] Mar, [place] [facility] [address] [place], [place] [phone] Feb, Acquired immune deficiency s yndrome (AIDS) 042 [facility] [address] [place] [address] Feb, Human immunodeficiency virus (HIV) disea se 042 [facility] [address] [place] [address] Dec, [place] [facility] [address] [place] [phone] Nov, Human immunodeficiency virus (HIV) disease 042 ; 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) use of opiate analgesic V58.69 and Essential hypertension, benign 401.1 [facility] [address] [place] [address] Oct, Nausea & vomiting 787.01 [facility] [address] [place] [address] Oct, [facility] [address] [facility] [address] [place] [phone] 1 Oct, Unspecified Histoplasmosis without mention of manifestation 115.90 [facility] [address] [place] [address] Oct, [facility] [address] [place] [address] 09 Oct, 2013 Nausea & vomiting 787.01 [facility] [address] [facility] [address] [place] [phone] 2 Sep, [facility] [place] [address] [facility] [address] [place] [phone] 2 8 Sep, 2013 [facility] [place] [facility] [address] [facility] [address] [place] [phone] 2 0 Jul, 2013 [facility] [place] [facility] [address] [facility] [address] [place] [phone] 0 7 May, 2013 [facility] [address] [facility] [place] [address] May, [facility] [address] [place] [address] Feb, [facility] [address] [place] [address] Nov, [facility] [address] [place] [address] Aug, [facility] [address] [facility] [place] [address] May, [facility] [address] [facility] [place] [address] Dec, [facility] [address] [facility] [place] [address] Sep, [facility] [address] [facility] [place] [address] June, [facility] [address] [facility] [place] [address] Mar, [facility] [address] [facility] [address] [place], [place] [phone] 0 7 Nov, 2010 IMMUNIZATIONS No Known Immunizations SOCIAL HISTORY Never Assessed REASON FOR VISIT HIV follow up PLAN OF CARE Activity Details Follow Up 4 Months Reason:HIV f/u Pending Test Human Immunodeficiency Virus (HIV-1), Quantitative, Real-time PCR (graph) 74567 Pending Test Chlamydia/ Gonococcus (GC), Rectal Swab, TONIO 30145, 26744 Pending Test Rapid Plasma Reagin (RPR), T est w/ Reflex to Quant RPR/Confirm Treponema pallidum Antibodies 79946 Pending Test Chlamydia / Gonorrhea (GC), TONIO 19011 07067 Pending Test Chlamydia/Gonococcus (GC), P haryngeal Swab, TONIO 41610, 95847 Pending Test Metabolic Panel (14), Robert hernandes (CMP) 98715 Pending Test CD4/CD8 Ratio Profile 19584 VITAL SIGNS Height 72 in 2018-08-20 Weight 214 lbs 2018-08-20 Temperature 99.1 degrees Fahrenheit 2018-08-20 Heart Rate 78 /min 2018-08-20 Respiratory Rate 18 /min 2018-08-20 Oximetry 97 % 2018-08-20 BMI 29.02 kg/m2 2018-08-20 Blood pressure systolic 124 mm Hg 2018-08-20 Blood pressure diastolic 78 mm Hg 2018-08-20 MEDICATIONS Medication Instructions Dosage Frequency Start Date End Date Duration S tatus Descovy 200-25 mg Orally Once a day 1 Tablet 24h 30 Active BusPIRone HCl 10 MG TAKE ONE TABLET BY MOUTH 3 TIMES A DAY. 30 Active Lisinopril 20 MG Orally once a day 1 tablet 24h 90 d ays Active Itraconazole 200 MG Orally two times daily 1 capsules after a meal 30 Active Isentress 400 MG TAKE 1 TABLET (400 MG) BY MOUTH 2 TIMES DAILY. 30 Active RESULTS No Results PROCEDURES Procedure Date Ordered Result Body Site Billed by outside source August 20, 2018 INSTRUCTIONS MEDICATIONS ADMINISTERED No Known Medications MEDICAL (GENERAL) HISTORY Type Description Date Medical History AIDS Medical History Hx histoplasmosis Medical History Hx Kaposi's sarcoma Medical History HTN Medical History Anxiety Surgical History lipoma removal 2009
--- OUTSIDE RECORDS SUMMARY | 2019-07-24 20:32 | XMS REPORT ---
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 Activ e 436100589 Problem Generalized anxiety disorder F41.1 A ctive 66679044 Problem Histoplasmosis B39.9 Active 94333 009 Problem AIDS B20 Active 09157244 ALLERGIES No Information ENCOUNTERS Encounter Location Date Diagnosis [address] [address] Jan, [address] [address] Jan, [facility] [address] [place] [phone] Jan, [facility] [address] [place] [phone] Jan, AIDS B20 [facility] [address] [place] [phone] Oct, AIDS B20 [facility] [address] [place] [phone] Aug, AIDS B[address] [address] Aug, [address] [address] Jul, Benign essential hypertension I10 [address] [address] Jul, [facility] [address] [place], [place] [id number] May, AIDS B20 [facility] [address] [place] [address] Apr, AIDS B20 [facility] [address] [place] [address] Apr, AIDS B20 [facility] [address] [place] [address] Feb, [facility] [address] [place] [address] Dec, [facility] [address] [place] [phone] Dec, Human immunodeficiency virus (HIV) disease B20 [facility] [address] [phone] Sep, Human immunodeficiency virus (HIV) disease B20 ; Benign essential hypertension I10 and Histoplasmosis B39.9 [facility] [address] [place] [phone] June, AIDS B20 [address] [address] Mar, [facility] [address] [place] [phone] Mar, AIDS B20 [place] [facility] [address] [place] [phone] Jan, Human immunodeficiency virus (HIV) disease B20 and Need for pneumococcal vaccine Z23 [facility] [address] [place] [address] Dec, Essential hypertension, benign 401.1 [place] [facility] [address] [place] [id number] Nov, AIDS B20 [facility] [address] [place] [address] Sep, [facility] [address] [phone] Aug, Human immunodeficiency virus (HIV) disease B20 ; Former smoker Z87.891 and Encounter for immunization Z23 [facility] [address] [place] [address] June, [facility] [address] [phone] Apr, Human immunodeficiency virus (HIV) disease B20 ; Benign essential hypertension I10 and Histoplasmosis B39.[address] [address] Mar, [facility] [address] [phone] Feb, Acquired immune deficiency s yndrome B20 and Screening examination for sexually transmitted disease Z11.[address] [address] Dec, [address] [address] Dec, [address] [phone] Nov, Human immunodeficiency virus (HIV) disease B20 and Benign essential hypertension I10 [address] [address] Sep, [address] [address] Sep, [address] [address] Sep, [address] [phone] June, Human immunodeficiency virus (HIV) disease 042 and Need for pneumococcal vaccination V03.[address] [address] Apr, [address] [address] Apr, [address] [address] Mar, [address] [phone] Feb, Acquired immune deficiency s yndrome (AIDS) [address] [address] Feb, Human immunodeficiency virus (HIV) disea se 042 [facility] [address] [place] [address] Dec, [facility] [address] [facility] C [place] [phone] Nov, Human immunodeficiency virus (HIV) disease 042 ; penitentiary (current) use of opiate analgesic V58.69 and Essential hypertension, benign 401.1 [facility] [address] [place] [address] 17 Oct, 2013 Nausea & vomiting 787.01 [facility] [address] [place] [address] Oct, [facility] [address] [phone] [phone] Oct, Unspecified Histoplasmosis without mention of manifestation 115.90 [facility] [address] [place] [address] 10 Oct, 2013 [facility] [address] [place] [address] 09 Oct, 2013 Nausea & vomiting 787.[address] [facility] [place] [facility] [address] [place] [id number] 2 9 Sep, [address] [facility] [place] [facility] [address] [place] [id number] 2 8 Sep, [address] [facility] [place] [facility] [address] [place] [phone] 2 0 Jul, [address] [facility] [place] [facility] [address] [id number] 0 7 May, 2013 [facility] [address] [place] [address] 04 May, 2013 [facility] [address] [place] [address] Feb, [facility] [address] [place] [address] Nov, [facility] [address] [place] [address] Aug, [facility] [address] [place] [address] May, [facility] [address] [place] [address] Dec, [facility] [address] [place] [address] Sep, [facility] [address] [place] [address] June, [facility] [address] [place] [address] Mar, [facility] [address] [facility] [address] [place] [phone] 0 7 Nov, 2010 IMMUNIZATIONS No Known Immunizations SOCIAL HISTORY Never Assessed REASON FOR VISIT shots PLAN OF CARE VITAL SIGNS MEDICATIONS [...]
--- OUTSIDE RECORDS SUMMARY | 2019-07-24 20:33 | XMS REPORT ---
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
--- OUTSIDE RECORDS SUMMARY | 2019-07-24 20:33 | XMS REPORT ---
Author Author Tony HUERTA Organization [facility] Address [address] [place] [address] Care Team Providers Care Stringed Instrument Assembler Name Role Phone JOANNA HUERTA Unavailable PROBLEMS Type Condition ICD9-CM Code IJM35-OS Code Onset Dates Condition S tatus SNOMED Code Problem Elevated blood pressure reading without diagnosi s of hypertension 796.2 Active 813508676 ALLERGIES No Information ENCOUNTERS Encounter Location Date Diagnosis [facility] [address] [facility] [id number] [address] [place] [phone] Jan, [facility] [address] [facility] [id number] [address] [place] [address] Oct, [facility] [address] [facility] [id number] [address] [place] [phone] Aug, [facility] [address] [facility] [id number] [address] [place] [address] May, [facility] [address] [facility] [id number] [address] [place] [address] Dec, [facility] [address] [place] [id number] [place] [phone] Sep, [facility] [address] [facility] [id number] [address] [place] [address] June, [facility] [address] [facility] [id number] [address] [place] [address] Mar, [facility] [address] [facility] [id number] [address] [place] [phone] Jan, [facility] [address] [facility] [id number] [address] [place] [phone] Nov, [facility] [address] [id number] [address] [place] [phone] Aug, [facility] [address] [id number] [address] [place] [phone] Apr, [facility] [address] [id number] [address] [place] [phone] Feb, [facility] [address] [id number] [address] [place] [phone] Jan, Encounter for dental examina tion Z01.20 and Elevated blood pressure reading without diagnosis of hypertension 796.2 [facility] [address] [id number] [address] [place] [address] Nov, [facility] [address] [id number] [address] [place] [phone] Aug, Dental examination V72.2 [facility] [address] [id number] [address] [place] [id number] Jul, Dental examination V72.2 [facility] [address] [id number] [address] [place] [address] June, [facility] [address] [id number] [address] [place] [phone] June, Dental examination V72.2 [facility] [address] [id number] [address] [place] [phone] Apr, [facility] [address] [id number] [address] [place] [phone] Apr, IMMUNIZATIONS No Known Immunizations SOCIAL HISTORY Never Assessed REASON FOR VISIT SWEET PLAN OF CARE VITAL SIGNS MEDICATIONS Unknown Medications RESULTS No Results PROCEDURES No Known procedures INSTRUCTIONS MEDICATIONS ADMINISTERED No Known Medications MEDICAL (GENERAL) HISTORY Type Description Date Medical History hpb Medical History hiv
--- OUTSIDE RECORDS SUMMARY | 2019-07-24 20:33 | XMS REPORT ---
Author Tony Costello [facility] eClinicalWorks Address Unknown Phone Unavailable Care Team Providers Care Dietary Aid Name Role Phone Bia Tineo CP Unavailable Allergies, Adverse Reactions, Alerts Substance Reaction Event Type N.K.D.A. Info Not Available Non Drug Allergy Problems Problem Type Condition ICD-9 Code Onset Dates Condition Statu s Problem Elevated blood pressure reading without diagnosi s of hypertension 796.2 Inactive Problem Anxiety state, unspecified 300.00 A ctive Problem Screening examination for venereal disease V74.5 Inactive Problem Kaposi's sarcoma of skin 176.0 Karin ctive Problem Coafitvgwc-vxhymdi-xpcdhesoj, combined [DTP] [DtaP] V0 6.1 Inactive Problem Unspecified Histoplasmosis without mention of manifest ation 115.90 Inactive Problem Need for prophylactic vaccination and inoculation, Inf luenza V04.81 Inactive Problem Need for prophylactic vaccin ation and inoculation against viral hepatitis V05.3 Inactive Problem Need for prophylactic vaccin ation against streptococcus pneumoniae (pneumococcus) V03.82 Inactive Problem prison (current) use of opiate analgesic V58.69 Active Assessment prison (current) use of opiate analgesic V58.69 Active Assessment Human immunodeficiency virus (HIV) disease 042 Active Problem Essential hypertension, benign 401.1 Active Assessment Essential hypertension, benign 401.1 Active Problem Unspecified essential hypertension 401.9 Inactive Medications Medication Code System Code Instructions Start Date End Date Status Dosage Lisinopril [facility] [address]-97 20 MG Orally 1 (one) QD August 24, 2013 1 tablet BusPIRone HCl [facility] [address]-30 10 MG Oral 1 (one) three t imes daily Nov 12, 2012 not defined Truvada [facility] [address]-02 200-300 MG Oral 1 (one) daily May 14 13 not defined Itraconazole [facility] [address]-65 100 MG Orally two times daily S ept 2013May 18, 2014 2 capsules after a meal Promethazine HCl [facility] [address]-04 25 MG Orally Three times a day Oct 19, 2013 Dec 28, [address] [facility] [address]-26 10 MG Oral 1 (one) QD August 24, 2013 not defined Isentress [facility] [address]-06 400 MG Oral 1 (one) two times holly ly May 14, 2012 not defined Itraconazole [facility] [address]-16 100 MG Oral two capsules tw o times daily May 05, 2013 not defined Ondansetron HCl [facility] [address]-20 8 MG Orally three times daily Oct 26, 2013 1 tablet as needed Procedures Procedure Coding System Code Date Office Visit, Est Pt., Level 3 CPT-[address] 2013 Vital Signs Date/Time: Dec 09, 2013 Temperature 97 F Weight 213.9 lbs Height 72 in Respiratory Rate 28 /min Cardiac Monitoring Heart Rate 80 /min Blood Pressure Diastolic 90 mm Hg Blood Pressure Systolic 130 mm Hg BMI 29.01 Index Results No Known Results Summary Purpose eClinicalWorks Submission
--- OUTSIDE RECORDS SUMMARY | 2019-07-24 20:33 | XMS REPORT ---
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 Activ e 447179134 Problem Former smoker Z87.891 Active 206646 6 Problem Histoplasmosis B39.9 Active 47817 009 ALLERGIES No Known Allergies ENCOUNTERS Encounter Location Date Diagnosis [facility] [address] [place], [place] [phone] Oct, AIDS B20 [facility] [address] [place] [phone] Aug, AIDS B20 [address] [address] Aug, [address] [address] Jul, Benign essential hypertension I10 [address] [address] Jul, [facility] [address] [place] [phone] May, AIDS B20 [address] [address] Apr, AIDS B20 [address] [address] Apr, AIDS B20 [address] [address] Feb, [address] [place] [address] Dec, [facility] [address] [place] [phone] Dec, Human immunodeficiency virus (HIV) disease B20 [facility] [address] [id number] Sep, Human immunodeficiency virus (HIV) disease B20 ; Benign essential hypertension I10 and Histoplasmosis B39.9 [facility] [address] [phone] June, AIDS B20 [place] [address] [place] [address] Mar, [facility] [address] [phone] Mar, AIDS B20 [facility] [address] [place] [phone] Jan, Human immunodeficiency virus (HIV) disease B20 and Need for pneumococcal vaccine Z23 [address] [address] Dec, Essential hypertension, benign 401.[address] [id number] Nov, AIDS B20 [address] [address] Sep, [address] [id number] Aug, Human immunodeficiency virus (HIV) disease B20 ; Former smoker Z87.891 and Encounter for immunization Z23 [address] [address] June, [facility] [address] [id number] Apr, Human immunodeficiency virus (HIV) disease B20 ; Benign essential hypertension I10 and Histoplasmosis B39.[address] [address] Mar, [facility] [address] [id number] Feb, Acquired immune deficiency s yndrome B20 and Screening examination for sexually transmitted disease Z11.3 [facility] [address] [place] [address] Dec, [address] [address] Dec, [facility] [address] [id number] Nov, Human immunodeficiency virus (HIV) disease B20 and Benign essential hypertension I10 [facility] [address] [place] [address] Sep, [address] [address] Sep, [address] [address] Sep, [facility] [address] [id number] June, Human immunodeficiency virus (HIV) disease 042 and Need for pneumococcal vaccination V03.[address] [address] Apr, [address] [address] Apr, [address] [address] Mar, [facility] [address] [id number] Feb, Acquired immune deficiency s yndrome (AIDS) [address] [address] Feb, Human immunodeficiency virus (HIV) disea se [address] [address] Dec, [facility] [address] [id number] Nov, Human immunodeficiency virus (HIV) disease 042 ; USP (current) use of opiate analgesic V58.69 and Essential hypertension, benign 401.[address] [address] Oct, Nausea & vomiting 787.01 [facility] [address] [facility] [place] [address] 12 Oct, 2013 [facility] [place] [facility] [address] [facility] [address] [place] [phone] 1 1 Oct, 2013 Unspecified Histoplasmosis without mention of manifestation 115.90 [facility] [address] [facility] [place] [address] 10 Oct, 2013 [facility] [address] [facility] [place] [address] 09 Oct, 2013 Nausea & vomiting 787.01 [facility] [place] [facility] [address] [facility] [address] [place] [phone] 2 9 Sep, 2013 [facility] [place] [facility] [address] [facility] [address] [place] [phone] 2 8 Sep, 2013 [facility] [place] [facility] [address] [facility] [address] [place] [phone] 2 0 Jul, 2013 [facility] [place] [facility] [address] [facility] [address] [place] [phone] 0 7 May, 2013 [facility] [address] [facility] [place] [address] 04 May, 2013 [facility] [address] [facility] [place] [address] Feb, [facility] [address] [facility] [place] [address] Nov, [facility] [address] [place] [address] Aug, [facility] [address] [place] [address] May, [facility] [address] [facility] [place] [address] Dec, [facility] [address] [facility] [place] [address] Sep, [facility] [address] [facility] [place] [address] June, [facility] [address] [facility] [place] [address] Mar, [facility] [place] [facility] [address] [facility] [address] [place] [phone] 0 7 Nov, 2010 IMMUNIZATIONS No Known Immunizations SOCIAL HISTORY Never Assessed REASON FOR VISIT HIV f/u PLAN OF CARE Activity Details Follow Up 4 Months Reason: VITAL SIGNS Height 72 in 2017-11-06 Weight 224 lbs 2017-11-06 Temperature 97.8 degrees Fahrenheit 2017-11-06 Heart Rate 79 /min 2017-11-06 Respiratory Rate 18 /min 2017-11-06 Oximetry 98 % 2017-11-06 BMI 30.38 kg/m2 2017-11-06 Blood pressure systolic 136 mm Hg 2017-11-06 Blood pressure diastolic 86 mm Hg 2017-11-06 MEDICATIONS Medication Instructions Dosage Frequency Start Date End Date Duration S jonathan BusPIRone HCl 10 MG TAKE ONE TABLET BY MOUTH 3 TIMES A DAY. 30 days Active Itraconazole 200 MG Orally two times daily 1 capsules after a meal 30 Active Descovy 200-25 mg Orally Once a day 1 Tablet 24h 30 Active Isentress 400 MG Orally Twice a day 1 tablet 12h 30 days Active Lisinopril 20 MG Orally once a day 1 tablet 24h 30 Active RESULTS No Results PROCEDURES Procedure Date Ordered Result Body Site Billed by outside source Nov 06, 2017 INSTRUCTIONS MEDICATIONS ADMINISTERED No Known Medications MEDICAL [...]
--- OUTSIDE RECORDS SUMMARY | 2019-07-24 20:33 | XMS REPORT ---
Author Author Tony HUERTA Organization [facility] Address [address] [place] [address] Care Team Providers Care Manager Exchange Name Role Phone JOANNA HUERTA Unavailable PROBLEMS Type Condition ICD9-CM Code FLX38-ID Code Onset Dates Condition S tatus SNOMED Code Problem Elevated blood pressure reading without diagnosi s of hypertension 796.2 Active 934727447 ALLERGIES No Information ENCOUNTERS Encounter Location Date Diagnosis [facility] [address] [id number] [address] [place] [phone] Jan, Syphilis A53.9 [facility] [address] [id number] [address] [place] [phone] Jan, [facility] [address] [id number] [address] [place] [phone] Oct, [facility] [address] [facility] [id number] [address] [place] [phone] Aug, [facility] [address] [id number] [address] [place] [phone] May, [facility] [address] [id number] [address] [place] [phone] Dec, [facility] [id number] [place] [phone] Sep, [facility] [address] [id number] [address] [place] [phone] June, [facility] [address] [id number] [address] [place] [phone] Mar, [facility] [address] [id number] [address] [place] [phone] Jan, [facility] [address] [id number] [address] [place] [phone] Nov, [facility] [address] [id number] [address] [place] [phone] Aug, [facility] [address] [id number] [address] [place] [phone] Apr, [facility] [address] [id number] [address] [place] [phone] Feb, [facility] [address] [id number] [address] [place] [phone] Jan, Encounter for dental examina tion Z01.20 and Elevated blood pressure reading without diagnosis of hypertension 796.2 [facility] [address] [id number] [address] [place] [address] Nov, [facility] [address] [id number] [address] [place] [phone] Aug, Dental examination V72.2 [facility] [address] [id number] [address] [place] [phone] Jul, Dental examination V72.2 [facility] [address] [id number] [address] [place] [phone] June, [facility] [address] [id number] [address] [place] [address] [phone] June, Dental examination V72.2 [facility] [address] [id number] [address] [place] [phone] Apr, [facility] [address] [id number] [address] [place] [phone] Apr, IMMUNIZATIONS No Known Immunizations SOCIAL HISTORY Never Assessed REASON FOR VISIT [facility] PLAN OF CARE VITAL SIGNS MEDICATIONS Medication Instructions Dosage Frequency Start Date End Date Duration S tatus Bicillin L-A [id number] UNIT/4ML Intramuscular once weekly x3 weeks as directed Jan, Feb, 21 days Active RESULTS No Results PROCEDURES No Known procedures INSTRUCTIONS MEDICATIONS ADMINISTERED No Known Medications MEDICAL (GENERAL) HISTORY Type Description Date Medical History hpb Medical History hiv
--- OUTSIDE RECORDS SUMMARY | 2019-07-24 20:33 | XMS REPORT ---
Author Author Tony HUERTA Organization [facility] Address [address] [place] [address] Care Team Providers Care Air Export Agent Name Role Phone JOANNA HUERTA Unavailable PROBLEMS Type Condition ICD9-CM Code QQD97-VT Code Onset Dates Condition S tatus SNOMED Code Problem Elevated blood pressure reading without diagnosi s of hypertension 796.2 Active [id number] ALLERGIES No Information ENCOUNTERS Encounter Location Date Diagnosis [facility] [address] [facility] [id number] [address] [place] [phone] Jan, [facility] [address] [facility] [id number] [address] [place] [phone] Oct, [facility] [address] [facility] [id number] [address] [place] [phone] Aug, [facility] [address] [facility] [id number] [address] [place] [phone] May, [facility] [address] [facility] [id number] [address] [place] [phone] Dec, [facility] [address] [place] [id number] [place] [address] [phone] Sep, [facility] [address] [facility] [id number] [address] [place] [phone] June, [facility] [address] [facility] [id number] [address] [place] [phone] Mar, [facility] [address] [facility] [id number] [address] [place] [phone] Jan, [facility] [address] [facility] [id number] [address] [place] [phone] Nov, [facility] [address] [id number] [address] [place] [phone] Aug, [facility] [address] [id number] [address] [place] [phone] Apr, [facility] [address] [id number] [address] [place] [phone] Feb, [facility] [address] [id number] [address] [place] [phone] Jan, Encounter for dental examina tion Z01.20 and Elevated blood pressure reading without diagnosis of hypertension 796.2 [facility] [address] [id number] [address] [place] [phone] Nov, [facility] [address] [id number] [address] [place] [address] [phone] Aug, Dental examination V72.2 [facility] [address] [id number] [address] [place] [address] [phone] Jul, Dental examination V72.2 [facility] [address] [id number] [address] [place] [phone] June, [facility] [address] [id number] [address] [place] [address] [phone] June, Dental examination V72.2 [facility] [address] [id number] [address] [place] [phone] Apr, [facility] [address] [id number] [address] [place] [phone] Apr, IMMUNIZATIONS No Known Immunizations SOCIAL HISTORY Never Assessed REASON FOR VISIT PLAN OF CARE VITAL SIGNS MEDICATIONS Unknown Medications RESULTS No Results PROCEDURES No Known procedures INSTRUCTIONS MEDICATIONS ADMINISTERED No Known Medications MEDICAL (GENERAL) HISTORY Type Description Date Medical History hpb Medical History hiv
--- OUTSIDE RECORDS SUMMARY | 2019-07-24 20:33 | XMS REPORT ---
Author Tony Isaac [facility] [employer] Address Unknown Phone Unavailable Care Team Providers Care Chemical Plant Operator Name Role Phone Deana Lizarraga CP Unavailable Allergies, Adverse Reactions, Alerts Substance Reaction Event Type N.K.D.A. 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 (ANA DE LEON) Lisinopril [facility] [address]-12 20 MG Orally 1 (one) QD August 24, 2013 1 tablet Isentress [facility] [id number] 400 MG Orally two times daily 1 tablet Ondansetron HCl [facility] [address]-40 8 MG Orally three times daily Oct 26, 2013 1 tablet as needed Procedures Procedure Coding System Code Date COMPREHEN METABOLIC PANEL CPT-4 91514 Feb LIPID PANEL SO CPT-4 00611 Mar 09, 2015 T CELL, ABSOLUTE COUNT/RATIO CPT-4 75217 Mar 09, 2015 ASSAY OF FREE THYROXINE CPT-4 09636 Mar 09, 2015 ASSAY THYROID STIM HORMONE CPT-4 81501 Feb 102015 [facility] MED/CURRENT MED MERGE CPT-4 1111F Mar 09, 2015 Office Visit, Est Pt., Level 3 CPT-4 68049 J an 2015 Vital Signs Date/Time: Mar 09, 2015 Temperature 97.8 F Weight 209.3 lbs Height 72 in Respiratory Rate 20 /min Cardiac Monitoring Heart Rate 76 /min Blood Pressure Diastolic 96 mm Hg Blood Pressure Systolic 138 mm Hg BMI 28.38 Index Results No Known Results Summary Purpose eClinical[employer] Submission
--- OUTSIDE RECORDS SUMMARY | 2019-07-24 20:33 | XMS REPORT ---
Author Author Tony HUERTA Organization [facility] Address [address] [place] [address] Care Team Providers Care Dry Cell Sealer Name Role Phone JOANNA HUERTA Unavailable PROBLEMS Type Condition ICD9-CM Code MSO65-NT Code Onset Dates Condition S tatus SNOMED Code Problem Elevated blood pressure reading without diagnosi s of hypertension 796.2 Active 835164860 ALLERGIES No Information ENCOUNTERS Encounter Location Date Diagnosis [facility] [address] [facility] [id number] [address] [place] [phone] Jan, [facility] [address] [facility] [id number] [address] [place] [phone] Oct, [facility] [address] [facility] [id number] [address] [place] [phone] Aug, [facility] [address] [facility] [id number] [address] [place] [phone] May, [facility] [address] [facility] [id number] [address] [place] [phone] Dec, [facility] [address] [place] [id number] [place] [phone] Sep, [facility] [address] [facility] [id number] [address] [place] [phone] June, [facility] [address] [facility] [id number] [address] [place] [phone] Mar, [facility] [address] [facility] [id number] [address] [place] [phone] Jan, [facility] [address] [facility] [id number] [address] [place] [phone] Nov, [facility] [address] [id number] [address] [place] [phone] Aug, [facility] [address] [id number] [address] [place] [phone] Apr, [facility] [address] [id number] [address] [place] [phone] Feb, [facility] [address] [id number] [address] [place] [address] [phone] Jan, Encounter for dental examina tion Z01.20 and Elevated blood pressure reading without diagnosis of hypertension 796.2 [facility] [address] [id number] [address] [place] [phone] Nov, [facility] [address] [id number] [address] [place] [phone] Aug, Dental examination V72.2 [facility] [address] [id number] [address] [place] [address] [phone] Jul, Dental examination V72.2 [facility] [address] [id number] [address] [place] [phone] June, [facility] [address] [id number] [address] [place] [address] [phone] June, Dental examination V72.2 [facility] [address] [id number] [address] [place] [phone] Apr, [facility] [address] [id number] [address] [place] [phone] Apr, IMMUNIZATIONS No Known Immunizations SOCIAL HISTORY Never Assessed REASON FOR VISIT PLAN OF CARE VITAL SIGNS MEDICATIONS Unknown Medications RESULTS No Results PROCEDURES No Known procedures INSTRUCTIONS MEDICATIONS ADMINISTERED No Known Medications MEDICAL (GENERAL) HISTORY Type Description Date Medical History hpb Medical History hiv
--- OUTSIDE RECORDS SUMMARY | 2019-07-24 20:33 | XMS REPORT ---
Author Author Tony HUERTA Organization [facility] Address [address] [place] [address] Care Team Providers Care Traveling Buyer Name Role Phone JOANNA HUERTA Unavailable PROBLEMS Type Condition ICD9-CM Code KNM46-OD Code Onset Dates Condition S tatus SNOMED Code Problem Elevated blood pressure reading without diagnosi s of hypertension 796.2 Active [id number] ALLERGIES No Information ENCOUNTERS Encounter Location Date Diagnosis [facility] [address] [facility] [id number] [address] [place] [phone] Jan, [facility] [address] [facility] [id number] [address] [place] [phone] Oct, [facility] [address] [facility] [id number] [address] [place] [phone] Aug, [facility] [address] [facility] [id number] [address] [place] [phone] May, [facility] [address] [facility] [id number] [address] [place] [phone] Dec, [facility] [address] [place] [id number] [place] [address] [id number] Sep, [facility] [address] [facility] [id number] [address] [place] [phone] June, [facility] [address] [facility] [id number] [address] [place] [phone] Mar, [facility] [address] [facility] [id number] [address] [place] [phone] Jan, [facility] [address] [facility] [id number] [address] [place] [phone] Nov, [facility] [address] [id number] [address] [place] [phone] Aug, [facility] [address] [id number] [address] [place] [phone] Apr, [facility] [address] [id number] [address] [place] [phone] Feb, [facility] [address] [id number] [address] [place] [address] [phone] Jan, Encounter for dental examina tion Z01.20 and Elevated blood pressure reading without diagnosis of hypertension 796.2 [facility] [address] [id number] [address] [place] [phone] Nov, [facility] [address] [id number] [address] [place] [address] [id number] Aug, Dental examination V72.2 [facility] [address] [id number] [address] [place] [address] [id number] Jul, Dental examination V72.2 [facility] [address] [id number] [address] [place] [phone] June, [facility] [address] [id number] [address] [place] [address] [id number] June, Dental examination V72.2 [facility] [address] [id number] [address] [place] [phone] Apr, [facility] [address] [id number] [address] [place] [phone] Apr, IMMUNIZATIONS No Known Immunizations SOCIAL HISTORY Never Assessed REASON FOR VISIT [facility] PLAN OF CARE VITAL SIGNS MEDICATIONS Unknown Medications RESULTS No Results PROCEDURES No Known procedures INSTRUCTIONS MEDICATIONS ADMINISTERED No Known Medications MEDICAL (GENERAL) HISTORY Type Description Date Medical History hpb Medical History hiv
--- OUTSIDE RECORDS SUMMARY | 2019-07-24 20:33 | XMS REPORT ---
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 Activ e 312008524 Problem Former smoker Z87.891 Active 362246 6 Problem Histoplasmosis B39.9 Active 39409 009 ALLERGIES No Information ENCOUNTERS Encounter Location Date Diagnosis [facility] [address] [place], [place] [phone] Aug, [facility][note 3] [address] [place] [phone] Aug, [address] [address] Jul, Benign essential hypertension I10 [facility][note 3] [address] [place] [phone] Jul, [facility] [address] [place] [phone] May, AIDS B20 [facility][note 3] [address] [place] [phone] Apr, AIDS B20 [facility][note 3] [address] [place] [address] Apr, AIDS B20 [facility][note 3] [address] [place] [address] Feb, [address] [address] Dec, [facility] [address] [place] [phone] Dec, Human immunodeficiency virus (HIV) disease B20 [facility] [address] [phone] Sep, Human immunodeficiency virus (HIV) disease B20 ; Benign essential hypertension I10 and Histoplasmosis B39.9 [facility] [address] [place] [phone] June, AIDS B20 [address] [address] Mar, [facility] [address] [id number] Mar, AIDS B20 [facility] [address] [place] [phone] Jan, Human immunodeficiency virus (HIV) disease B20 and Need for pneumococcal vaccine Z23 [address] [address] Dec, Essential hypertension, benign 401.[address] [id number] Nov, AIDS B20 [address] [address] Sep, [address] [id number] Aug, Human immunodeficiency virus (HIV) disease B20 ; Former smoker Z87.891 and Encounter for immunization Z23 [address] [address] June, [address] [id number] Apr, Human immunodeficiency virus (HIV) disease B20 ; Benign essential hypertension I10 and Histoplasmosis B39.[address] [address] Mar, [address] [id number] Feb, Acquired immune deficiency s yndrome B20 and Screening examination for sexually transmitted disease Z11.[address] [address] Dec, [facility][note 3] [address] [place] [address] Dec, [facility] [address] [id number] Nov, Human immunodeficiency virus (HIV) disease B20 and Benign essential hypertension I10 [facility][note 3] [address] [place] [phone] Sep, [facility][note 3] [address] [place] [address] Sep, [facility][note 3] [address] [place] [address] Sep, [facility] [address] [id number] June, Human immunodeficiency virus (HIV) disease 042 and Need for pneumococcal vaccination V03.[address] [address] Apr, [address] [address] Apr, [address] [address] Mar, [facility] [address] [id number] Feb, Acquired immune deficiency s yndrome (AIDS) [address] [address] Feb, Human immunodeficiency virus (HIV) disea se [address] [address] Dec, [facility] [address] [id number] Nov, Human immunodeficiency virus (HIV) disease 042 ; longterm (current) use of opiate analgesic V58.69 and Essential hypertension, benign 401.[address] [address] Oct, Nausea & vomiting 787.[address] [address] Oct, [place] [address] [facility] [address] [place] [id number] 1 1 Oct, 2013 Unspecified Histoplasmosis without mention of manifestation 115.90 [facility] [address] [facility] [place] [address] 10 Oct, 2013 [facility] [address] [facility] [place] [facility] [address] 09 Oct, 2013 Nausea & vomiting 787.01 [facility] [place] [facility] [address] [facility] [address] [place] [id number] 2 9 Sep, 2013 [facility] [place] [facility] [address] [facility] [address] [place] [id number] 2 8 Sep, 2013 [facility] [place] [facility] [address] [facility] [address] [place] [id number] 2 0 Jul, 2013 [facility] [address] [facility] [address] [place] [id number] 0 7 May, 2013 [facility] [address] [facility] [place] [facility] [address] May, [facility] [address] [facility] [place] [facility] [address] Feb, [facility] [address] [place] [address] Nov, [facility] [address] [place] [address] Aug, [facility] [address] [place] [address] May, [facility] [address] [place] [address] Dec, [facility] [address] [place] [address] Sep, [facility] [address] [place] [address] June, [facility] [address] [place] [address] Mar, [facility] [place] [facility] [address] [facility] [address] [place] [id number] 0 7 Nov, 2010 IMMUNIZATIONS No Known Immunizations SOCIAL HISTORY Never Assessed REASON FOR VISIT refill Buspirone PLAN OF CARE VITAL SIGNS MEDICATIONS Medication Instructions Dosage Frequency Start Date End Date Duration Oksana castillo BusPIRone HCl 10 MG TAKE ONE TABLET [...]
--- OUTSIDE RECORDS SUMMARY | 2019-07-24 20:33 | XMS REPORT ---
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 [address] [place] [address] Apr, AIDS B20 [facility] [address] [place] [address] Apr, AIDS B20 [facility] [address] [place] [address] Feb, [address] [address] Dec, [facility] [address] [place] [phone] Dec, Human immunodeficiency virus (HIV) disease B20 [facility] [address] [place] [phone] Sep, Human immunodeficiency virus (HIV) disease B20 ; Benign essential hypertension I10 and Histoplasmosis B39.9 [facility] [address] [id number] June, AIDS B20 [address] [address] Mar, [facility] [address] [id number] Mar, AIDS B20 [facility] [address] [place] [phone] Jan, Human immunodeficiency virus (HIV) disease B20 and Need for pneumococcal vaccine Z23 [address] [address] Dec, Essential hypertension, benign 401.[address] [id number] Nov, AIDS B20 [address] [address] Sep, [address] [id number] Aug, Human immunodeficiency virus (HIV) disease B20 ; Former smoker Z87.891 and Encounter for immunization Z23 [address] [address] June, [address] [id number] Apr, Human immunodeficiency virus (HIV) disease B20 ; Benign essential hypertension I10 and Histoplasmosis B39.[address] [address] Mar, [facility] [address] [id number] Feb, Acquired immune deficiency s yndrome B20 and Screening examination for sexually transmitted disease Z11.[address] [address] Dec, [facility] [address] [place] [address] Dec, [facility] [address] [id number] Nov, Human immunodeficiency virus (HIV) disease B20 and Benign essential hypertension I10 [address] [address] Sep, [address] [address] Sep, [address] [address] Sep, [facility] [address] [id number] June, Human immunodeficiency virus (HIV) disease 042 and Need for pneumococcal vaccination V03.[address] [address] Apr, [address] [address] Apr, [address] [address] Mar, [facility] [address] [id number] Feb, Acquired immune deficiency s yndrome (AIDS) [address] [address] Feb, Human immunodeficiency virus (HIV) disea se [address] [address] Dec, [facility] [address] [id number] Nov, Human immunodeficiency virus (HIV) disease 042 ; FDC (current) use of opiate analgesic V58.69 and Essential hypertension, benign 401.[address] [address] Oct, Nausea & vomiting 787.[address] [address] Oct, [facility] [place] [facility] [address] [facility] [address] [place] [id number] 1 1 Oct, 2013 Unspecified Histoplasmosis without mention of manifestation 115.90 [facility] [address] [facility] [place] [address] 10 Oct, 2013 [facility] [address] [facility] [place] [address] 09 Oct, 2013 Nausea & vomiting 787.01 [facility] [place] [facility] [address] [facility] [address] [place] [id number] 2 9 Sep, 2013 [facility] [facility] [address] [facility] [address] [place] [id number] 2 8 Sep, [address] [facility] [place] [facility] [address] [facility] [address] [place] [id number] 2 0 Jul, 2013 [facility] [place] [facility] [address] [facility] [address] [place] [id number] 0 7 May, 2013 [facility] [address] [facility] [place] [address] May, [facility] [address] [facility] [place] [address] Feb, [facility] [address] [facility] [place] [address] Nov, [facility] [address] [place] [address] Aug, [facility] [address] [place] [address] May, [facility] [address] [place] [address] Dec, [facility] [address] [facility] [place] [address] Sep, [facility] [address] [facility] [place] [address] June, [facility] [address] [facility] [place] [address] 17 Mar, 2011 [facility] [place] [facility] [address] [facility] [address] [place] [id number] 0 7 Nov, 2010 IMMUNIZATIONS No Known Immunizations SOCIAL HISTORY Never Assessed REASON FOR VISIT PLAN OF CARE Activity Details Follow Up 3 Months Reason: Pending Test Human Immunodeficiency Virus (HIV-1), Quantitative, Real-time PCR (graph) 14214 Pending Test Metabolic Panel (14), Compre hensive (CMP) 26935 Pending Test CD4/CD8 Ratio Profile 87464 VITAL SIGNS Height 72 in 2017-08-28 Weight 210 lbs 2017-08-28 Temperature 97.9 degrees Fahrenheit 2017-08-28 Heart Rate 67 /min 2017-08-28 Respiratory Rate 16 /min 2017-08-28 Oximetry 97 % 2017-08-28 BMI 28.48 kg/m2 2017-08-28 Blood pressure systolic 124 mm Hg 2017-08-28 Blood pressure diastolic 80 mm Hg 2017-08-28 MEDICATIONS Medication Instructions Dosage Frequency Start Date End Date Duration S tatus Itraconazole 200 MG Orally two times daily 1 capsules after a meal 30 Active Descovy 200-25 mg Orally Once a day 1 Tablet 24h 30 Active Itraconazole 100 Orally two times daily 2 capsules after a meal 30 Active BusPIRone HCl 10 MG TAKE ONE TABLET BY MOUTH 3 TIMES A DAY. 30 days Active Lisinopril 20 MG Orally once a day 1 tablet 24h 30 Active Isentress 400 MG Orally Twice a day 1 tablet 12h 30 days Active RESULTS No Results PROCEDURES Procedure Date Ordered Result Body Site Billed by outside source August 28, 2017 INSTRUCTIONS MEDICATIONS ADMINISTERED No Known Medications [...]
--- OUTSIDE RECORDS SUMMARY | 2019-07-24 20:33 | XMS REPORT ---
Author Author Tony HUERTA Organization [facility] Address [address] [place] [address] Care Team Providers Care Territory Sales Representative Name Role Phone JOANNA HUERTA Unavailable PROBLEMS Type Condition ICD9-CM Code VIO44-XF Code Onset Dates Condition S tatus SNOMED Code Problem Elevated blood pressure reading without diagnosi s of hypertension 796.2 Active 575850171 ALLERGIES No Information ENCOUNTERS Encounter Location Date Diagnosis [facility] [address] [facility] [id number] [address] [place] [phone] Jan, [facility] [address] [facility] [id number] [address] [place] [phone] Oct, [facility] [address] [facility] [id number] [address] [place] [phone] Aug, [facility] [address] [facility] [id number] [address] [place] [phone] May, [facility] [address] [facility] [id number] [address] [place] [phone] Dec, [facility] [address] [place] [id number] [place] [id number] Sep, [facility] [address] [facility] [id number] [address] [place] [phone] June, [facility] [address] [facility] [id number] [address] [place] [phone] Mar, [facility] [address] [facility] [id number] [address] [place] [phone] Jan, [facility] [address] [facility] [id number] [address] [place] [phone] Nov, [facility] [address] [id number] [address] [place] [phone] Aug, [facility] [address] [id number] [address] [place] [phone] Apr, [facility] [address] [id number] [address] [place] [phone] Feb, [facility] [address] [id number] [address] [place] [phone] Jan, Encounter for dental examina tion Z01.20 and Elevated blood pressure reading without diagnosis of hypertension 796.2 [facility] [address] [id number] [address] [place] [phone] Nov, [facility] [address] [id number] [address] [place] [phone] Aug, Dental examination V72.2 [facility] [address] [id number] [address] [place] [phone] Jul, Dental examination V72.2 [facility] [address] [id number] [address] [place] [phone] June, [facility] [address] [id number] [address] [place] [address] [phone] June, Dental examination V72.2 [facility] [address] [id number] [address] [place] [phone] Apr, [facility] [address] [id number] [address] [place] [phone] Apr, IMMUNIZATIONS No Known Immunizations SOCIAL HISTORY Never Assessed REASON FOR VISIT PLAN OF CARE VITAL SIGNS MEDICATIONS Unknown Medications RESULTS No Results PROCEDURES No Known procedures INSTRUCTIONS MEDICATIONS ADMINISTERED No Known Medications MEDICAL (GENERAL) HISTORY Type Description Date Medical History hpb Medical History hiv
--- OUTSIDE RECORDS SUMMARY | 2019-07-24 20:33 | XMS REPORT ---
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
--- OUTSIDE RECORDS SUMMARY | 2019-07-24 20:33 | XMS REPORT ---
Author Tony Costello Organization [employer] Address Unknown Phone Unavailable Care Team Providers Care Community Engagement Leader Name Role Phone Bia Tineo CP Unavailable [...]
--- OUTSIDE RECORDS SUMMARY | 2019-07-24 20:33 | XMS REPORT ---
Author Author Tony HUERTA Organization [facility] Address [address] [place] [address] Care Team Providers Care Credit Collection Specialist Name Role Phone JOANNA HUERTA Unavailable PROBLEMS Type Condition ICD9-CM Code [id number] Code Onset Dates Condition S tatus SNOMED Code Problem Elevated blood pressure reading without diagnosi s of hypertension 796.2 Active 844222174 ALLERGIES No Information ENCOUNTERS Encounter Location Date Diagnosis [facility] [address] [facility] [id number] [address] [place] [phone] Jan, [facility] [address] [facility] [id number] [address] [place] [phone] Oct, [facility] [address] [facility] [id number] [address] [place] [phone] Aug, [facility] [address] [facility] [id number] [address] [place] [phone] May, [facility] [address] [facility] [id number] [address] [place] [phone] Dec, [facility] [address] [place] [id number] [place] [id number] Sep, [facility] [address] [facility] [id number] [address] [place] [phone] June, [facility] [address] [facility] [id number] [address] [place] [phone] Mar, [facility] [address] [facility] [id number] [address] [place] [phone] Jan, [facility] [address] [facility] [id number] [address] [place] [phone] Nov, [facility] [address] [id number] [address] [place] [phone] Aug, [facility] [address] [id number] [address] [place] [phone] Apr, [facility] [address] [id number] [address] [place] [phone] Feb, [facility] [address] [id number] [address] [place] [id number] Jan, Encounter for dental examina tion Z01.20 and Elevated blood pressure reading without diagnosis of hypertension 796.2 [facility] [address] [id number] [address] [place] [phone] Nov, [facility] [address] [id number] [address] [place] [id number] Aug, Dental examination V72.2 [facility] [address] [id number] [address] [place] [phone] Jul, Dental examination V72.2 [facility] [address] [id number] [address] [place] [phone] June, [facility] [address] [id number] [address] [place] [phone] June, Dental examination V72.2 [facility] [address] [id number] [address] [place] [phone] Apr, [facility] [address] [id number] [address] [place] [phone] Apr, IMMUNIZATIONS No Known Immunizations SOCIAL HISTORY Never Assessed REASON FOR VISIT PLAN OF CARE VITAL SIGNS MEDICATIONS Unknown Medications RESULTS No Results PROCEDURES No Known procedures INSTRUCTIONS MEDICATIONS ADMINISTERED No Known Medications MEDICAL (GENERAL) HISTORY Type Description Date Medical History hpb Medical History hiv
--- OUTSIDE RECORDS SUMMARY | 2019-07-24 20:33 | XMS REPORT ---
Author Author Tony HUERTA Organization [facility] Address [address] [place] [address] Care Team Providers Care Behavioral Health Technician Name Role Phone JOANNA HUERTA Unavailable PROBLEMS Type Condition ICD9-CM Code QRA47-ID Code Onset Dates Condition S tatus SNOMED Code Problem Elevated blood pressure reading without diagnosi s of hypertension 796.2 Active [id number] ALLERGIES No Information ENCOUNTERS Encounter Location Date Diagnosis [facility] [address] [facility] [id number] [address] [place] [phone] Jan, [facility] [address] [facility] [id number] [address] [place] [phone] Oct, [facility] [address] [facility] [id number] [address] [place] [phone] Aug, [facility] [address] [facility] [id number] [address] [place] [phone] May, [facility] [address] [facility] [id number] [address] [place] [phone] Dec, [facility] [address] [place] [id number] [place] [phone] Sep, [facility] [address] [facility] [id number] [address] [place] [phone] June, [facility] [address] [facility] [id number] [address] [place] [phone] Mar, [facility] [address] [facility] [id number] [address] [place] [phone] Jan, [facility] [address] [facility] [id number] [address] [place] [phone] Nov, [facility] [address] [id number] [address] [place] [phone] Aug, [facility] [address] [id number] [address] [place] [phone] Apr, [facility] [address] [id number] [address] [place] [phone] Feb, [facility] [address] [id number] [address] [place] [phone] Jan, Encounter for dental examina tion Z01.20 and Elevated blood pressure reading without diagnosis of hypertension 796.2 [facility] [address] [id number] [address] [place] [phone] Nov, [facility] [address] [id number] [address] [place] [address] [phone] Aug, Dental examination V72.2 [facility] [address] [id number] [address] [place] [phone] Jul, Dental examination V72.2 [facility] [address] [id number] [address] [place] [phone] June, [facility] [address] [id number] [address] [place] [address] [phone] June, Dental examination V72.2 [facility] [address] [id number] [address] [place] [phone] Apr, [facility] [address] [id number] [address] [place] [phone] Apr, IMMUNIZATIONS No Known Immunizations SOCIAL HISTORY Never Assessed REASON FOR VISIT PLAN OF CARE VITAL SIGNS MEDICATIONS Unknown Medications RESULTS No Results PROCEDURES No Known procedures INSTRUCTIONS MEDICATIONS ADMINISTERED No Known Medications MEDICAL (GENERAL) HISTORY Type Description Date Medical History hpb Medical History hiv
--- OUTSIDE RECORDS SUMMARY | 2019-07-24 20:33 | XMS REPORT ---
Author Author Tony HUERTA Organization [facility] Address [address] [place] [address] Care Team Providers Care Gun Repair Clerk Name Role Phone JOANNA HUERTA Unavailable PROBLEMS Type Condition ICD9-CM Code KZK46-BJ Code Onset Dates Condition S tatus SNOMED Code Problem Elevated blood pressure reading without diagnosi s of hypertension 796.2 Active [id number] ALLERGIES No Information ENCOUNTERS Encounter Location Date Diagnosis [facility] [address] [facility] [id number] [address] [place] [phone] Jan, [facility] [address] [facility] [id number] [address] [place] [phone] Oct, [facility] [address] [facility] [id number] [address] [place] [phone] Aug, [facility] [address] [facility] [id number] [address] [place] [phone] May, [facility] [address] [facility] [id number] [address] [place] [phone] Dec, [facility] [id number] [place] [address] [phone] Sep, [facility] [address] [facility] [id number] [address] [place] [phone] June, [facility] [address] [facility] [id number] [address] [place] [phone] Mar, [facility] [address] [facility] [id number] [address] [place] [phone] Jan, [facility] [address] [facility] [id number] [address] [place] [phone] Nov, [facility] [address] [id number] [address] [place] [phone] Aug, [facility] [address] [id number] [address] [place] [phone] Apr, [facility] [address] [id number] [address] [place] [phone] Feb, [facility] [address] [id number] [address] [place] [address] [phone] Jan, Encounter for dental examina tion Z01.20 and Elevated blood pressure reading without diagnosis of hypertension 796.2 [facility] [address] [id number] [address] [place] [phone] Nov, [facility] [address] [id number] [address] [place] [address] [phone] Aug, Dental examination V72.2 [facility] [address] [id number] [address] [place] [address] [phone] Jul, Dental examination V72.2 [facility] [address] [id number] [address] [place] [phone] June, [facility] [address] [id number] [address] [place] [address] [phone] June, Dental examination V72.2 [facility] [address] [id number] [address] [place] [phone] Apr, [facility] [address] [id number] [address] [place] [phone] Apr, IMMUNIZATIONS No Known Immunizations SOCIAL HISTORY Never Assessed REASON FOR VISIT PLAN OF CARE VITAL SIGNS MEDICATIONS Unknown Medications RESULTS No Results PROCEDURES No Known procedures INSTRUCTIONS MEDICATIONS ADMINISTERED No Known Medications MEDICAL (GENERAL) HISTORY Type Description Date Medical History hpb Medical History hiv
--- OUTSIDE RECORDS SUMMARY | 2019-07-24 20:33 | XMS REPORT ---
Author Author Tony Horton Doctor Organization [facility] Address Unknown Phone Unavailable Care Team Providers Care Thoracic Medicine Physician Name Role Phone Migration, Doctor Unavailable Unavailable PROBLEMS Type Condition ICD9-CM Code XHR87-YH Code Onset Dates Condition S tatus SNOMED Code Problem Elevated blood pressure reading without diagnosi s of hypertension 796.2 Active [id number] ALLERGIES No Information ENCOUNTERS Encounter Location Date Diagnosis [facility] [address] [id number] [address] [place] [phone] May, [facility] [address] [id number] [address] [place] [phone] May, [facility] [address] [id number] [address] [place] [phone] Feb, [facility] [address] [id number] [address] [place] [phone] Feb, Syphilis A53.9 [facility] [address] [id number] [address] [place] [phone] Jan, Syphilis A53.9 [facility] [address] [id number] [address] [place] [phone] Jan, [facility] [address] [id number] [address] [place] [phone] Jan, Syphilis A53.9 [facility] [address] [id number] [address] [place] [phone] Jan, Syphilis A53.9 [facility] [address] [id number] [address] [place] [phone] Jan, [facility] [address] [id number] [address] [place] [phone] Oct, [facility] [address] [id number] [address] [place] [phone] Aug, [facility] [address] [id number] [address] [place] [phone] May, [facility] [address] [id number] [address] [place] [phone] Dec, [facility] [id number] [place] [address] [phone] Sep, [facility] [address] [id number] [address] [place] [phone] June, [facility] [address] [id number] [address] [place] [phone] Mar, [facility] [address] [id number] [address] [place] [phone] Jan, [facility] [address] [id number] [address] [place] [phone] Nov, [facility] [address] [id number] [address] [place] [phone] Aug, [facility] [address] [id number] [address] [place] [phone] Apr, [facility] [address] [id number] [address] [place] [phone] Feb, [facility] [address] [id number] [address] [place] [address] [phone] Jan, Encounter for dental examina tion Z01.20 and Elevated blood pressure reading without diagnosis of hypertension 796.2 [facility] [address] [id number] [address] [place] [phone] Nov, [facility] [address] [id number] [address] [place] [address] [phone] Aug, Dental examination V72.2 [facility] [address] [id number] [address] [place] [address] [phone] Jul, Dental examination V72.2 [facility] [address] [facility] [id number] [address] [place] [address] June, [facility] [address] [id number] [address] [place] [address] [phone] June, Dental examination V72.2 [facility] [address] [facility] [id number] [address] [place] [phone] Apr, [facility] [address] [facility] [id number] [address] [place] [phone] Apr, IMMUNIZATIONS No Known Immunizations SOCIAL HISTORY Never Assessed REASON FOR VISIT PLAN OF CARE VITAL SIGNS Blood pressure systolic 144 mmHg 2014-05-05 Blood pressure diastolic 98 mmHg 2014-05-05 MEDICATIONS Unknown Medications RESULTS No Results PROCEDURES Procedure Date Ordered Result Body Site BLOOD PRESSURE, MEASURED May 05, 2014 INSTRUCTIONS MEDICATIONS ADMINISTERED No Known Medications MEDICAL (GENERAL) HISTORY Type Description Date Medical History hpb Medical History hiv
--- OUTSIDE RECORDS SUMMARY | 2019-07-24 20:34 | XMS REPORT ---
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
--- OUTSIDE RECORDS SUMMARY | 2019-07-24 20:34 | XMS REPORT ---
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 (ANA DE LEON) Itraconazole [facility] 27165272003 100 Orally two times daily 2 capsules after a meal Ondansetron HCl [facility] [address]-28 8 MG Orally three times daily Oct 26, 2013 1 tablet as needed Procedures Procedure Coding System Code Date Office Visit, Est Pt., Level 4 CPT-[address] 2014 Results No Known Results Summary Purpose [employer] Submission
--- OUTSIDE RECORDS SUMMARY | 2019-07-24 20:34 | XMS REPORT ---
Author Author Tony Lizarraga 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 Unknown Non Drug Allergy Sep, Unknown SOCIAL HISTORY No smoking Hx information available PLAN OF CARE Activity Details Follow Up 12/12/16, prn Reason:null Pending Test Human Immunodeficiency Virus (HIV-1), Quantitative, Real-time PCR (graph) 24365 Pending Test Metabolic Panel (14), Compre hensive (CMP) 12167 Pending Test CD4/CD8 Ratio Profile 28087 VITAL SIGNS Height 72 in 2016-09-19 Weight 212 lbs 2016-09-19 Temperature 96.5 degrees Fahrenheit 2016-09-19 Heart Rate 79 /min 2016-09-19 Respiratory Rate 18 /min 2016-09-19 Oximetry 98 % 2016-09-19 BMI 28.75 kg/m2 2016-09-19 Blood pressure systolic 138 mm Hg 2016-09-19 Blood pressure diastolic 94 mm Hg 2016-09-19 MEDICATIONS Medication Instructions Dosage Frequency Start Date End Date Duration S tatus Lisinopril 20 MG Orally once a day 1 tablet 24h Aug, 30 days Active Itraconazole 200 MG Orally two times daily 1 capsules after a meal 30 Active Ondansetron HCl 8 MG Orally three times daily 1 tablet as needed Oct, 30 day(s) Active Itraconazole 100 Orally two times daily 2 capsules after a meal 30 Active BusPIRone HCl 10 MG TAKE ONE TABLET BY MOUTH 3 TIMES A DAY. Active Isentress 400 MG TAKE ONE TABLET BY MOUTH 2 TIMES A DAY Active Descovy 200-25 mg Orally Once a day 1 Tablet 24h Jan, 30 days Active RESULTS No Results PROCEDURES Procedure Date Ordered Related Diagnosis Body Site T CELL, ABSOLUTE COUNT/RATIO Sep 19, 2016 COMPREHEN METABOLIC PANEL Sep 19, 2016 Office Visit, Est Pt., Level 3 Sep 19, 2016 IMMUNIZATIONS No Known Immunizations
--- OUTSIDE RECORDS SUMMARY | 2019-07-24 20:34 | XMS REPORT ---
Author Author Tony HUERTA Organization [employer] Address Unknown Phone Unavailable Care Team Providers Care Ict Educator Name Role Phone JOANNA HUERTA CP Unavailable Allergies No Known Allergies Problems Problem Type Condition Code Onset Dates Condition Statu s Problem Elevated blood pressure reading without diagnosi s of hypertension 796.2 Active Medications No Known Medications Results No Known Results Summary Purpose [employer] Submission
--- OUTSIDE RECORDS SUMMARY | 2019-07-24 20:34 | XMS REPORT ---
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 Unknown Non Drug Allergy June, Unknown SOCIAL HISTORY No smoking Hx information available PLAN OF CARE Activity Details Pending Test Human Immunodeficiency Virus (HIV-1), Quantitative, Real-time PCR (graph) 56087 Pending Test Rapid Plasma Reagin (RPR), T est w/ Reflex to Quant RPR/Confirm Treponema pallidum Antibodies 05411 Pending Test Low-Density Lipoprotein (LDL ) Cholesterol (Direct) Pending Test Metabolic Panel (14), Compre hensive (CMP) 98432 Pending Test CD4/CD8 Ratio Profile 00888 3 Months,Reason: VITAL SIGNS Height 72 in 2016-06-20 Weight 213 lbs 2016-06-20 Temperature 97.8 degrees Fahrenheit 2016-06-20 Heart Rate 85 /min 2016-06-20 Respiratory Rate 16 /min 2016-06-20 Oximetry 96 % 2016-06-20 BMI 28.88 kg/m2 2016-06-20 Blood pressure systolic 112 mm Hg 2016-06-20 Blood pressure diastolic 80 mm Hg 2016-06-20 MEDICATIONS Medication Instructions Dosage Frequency Start Date End Date Duration S tatus BusPIRone HCl 10 MG TAKE ONE TABLET BY MOUTH 3 TIMES A DAY. Active Descovy 200-25 mg Orally Once a day 1 Tablet 24h Jan, 30 days Active Ondansetron HCl 8 MG Orally three times daily 1 tablet as needed Oct, 30 day(s) Active Itraconazole 200 MG Orally two times daily 1 capsules after a meal 30 Active Lisinopril 20 MG Orally once a day 1 tablet 24h Aug, 30 days Active Isentress 400 MG TAKE ONE TABLET BY MOUTH 2 TIMES A DAY Active RESULTS No Results PROCEDURES Procedure Date Ordered Related Diagnosis Body Site Billed by outside source June 20, 2016 Office Visit, Est Pt., Level 3 June 20, 2016 IMMUNIZATIONS No Known Immunizations
--- OUTSIDE RECORDS SUMMARY | 2019-07-24 20:34 | XMS REPORT ---
Author Author Tony Lizarraga Organization [employer] Address Unknown Phone Unavailable Care Team Providers Care School Bus Driver Name Role Phone Deana Lizarraga CP Unavailable Allergies, Adverse Reactions, Alerts Substance Reaction Event Type N.K.D.A. 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 Act klever Problem AIDS B20 Active Medications Medication Code System Code Instructions Start Date End Date Status Dosage Itraconazole [facility] 70275756432 100 Orally two times daily 2 capsules after a meal Itraconazole [facility] [address]-59 200 MG Orally two times daily 1 capsules after a meal Lisinopril [facility] [address]-35 20 MG Orally 1 (one) QD August 24, 2013 1 tablet Isentress [facility] 12210532682 400 MG Orally two times daily 1 tablet Truvada [facility] 94390671938 200-300 MG Orally Once a day 1 tablet BusPIRone HCl [facility] 84814173794 10 MG TAKE O NE TABLET BY MOUTH 3 TIMES A DAY. Ondansetron HCl [facility] [address]-29 8 MG Orally three times daily Oct 26, 2013 1 tablet as needed Procedures Procedure Coding System Code Date Billed by outside source CPT-4 NOBLL Nov 30, 2015 COMPREHEN METABOLIC PANEL CPT-4 63420 Nov T CELL, ABSOLUTE COUNT/RATIO CPT-4 67200 Nov 30, 2015 Office Visit, Est Pt., Level 3 CPT-[address] 2015 Vital Signs Date/Time: Nov 30, 2015 Temperature 97 F Weight 213 lbs Height 72 in Respiratory Rate 16 /min Cardiac Monitoring Heart Rate 74 /min Blood Pressure Diastolic 80 mm Hg Blood Pressure Systolic 130 mm Hg BMI 28.88 Index Results No Known Results Summary Purpose [employer] Submission
--- OUTSIDE RECORDS SUMMARY | 2019-07-24 20:34 | XMS REPORT ---
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 Activ e 832100930 Problem Former smoker Z87.891 Active 765809 6 Problem Histoplasmosis B39.9 Active 36899 009 ALLERGIES No Information SOCIAL HISTORY Never Assessed PLAN OF CARE VITAL SIGNS MEDICATIONS Unknown Medications RESULTS No Results PROCEDURES No Known procedures IMMUNIZATIONS No Known Immunizations MEDICAL (GENERAL) HISTORY Type Description Date Medical History Acquired immune deficiency syndrome ; Medical History HISTOPLASMOSIS NOS (115.90) ; Medical History Cancerous red or purple patc hes on skin , (Desc:Kaposi's sarcoma of skin) ; Medical History Benign hypertension , (Desc:Hypertension , benign) ; Medical History Anxiety ; Surgical History lipoma removal 2009
--- OUTSIDE RECORDS SUMMARY | 2019-07-24 20:34 | XMS REPORT ---
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 [address]-90 20 MG Orally 1 (one) QD August 24, [address] [facility] 28157896154 200-300 MG Orally Once a day [address] [facility] [address]-51 200 MG Orally two times daily 1 capsules after a meal BusPIRone HCl [facility] 04516425111 10 MG TAKE O NE TABLET BY MOUTH 3 TIMES A DAY. (ANA DE LEON) Isentress [facility] 91098464473 400 MG Orally two times daily 1 tablet Ondansetron HCl [facility] [address]-54 8 MG Orally three times daily Oct 26, 2013 1 tablet as needed Procedures Procedure Coding System Code Date Tdap CPT-4 65388 August 17, 2015 IMMUNIZATION ADMIN CPT-4 21386 August 17, 2015 Billed by outside source CPT-4 NOBLL August Office Visit, Est Pt., Level 3 CPT-4 27392 [facility] 2015 Vital Signs Date/Time: August 17, 2015 Temperature 97.3 F Weight 210 lbs Height 72 in Respiratory Rate 18 /min Cardiac Monitoring Heart Rate 68 /min Blood Pressure Diastolic 88 mm Hg Blood Pressure Systolic 136 mm Hg BMI 28.48 Index Results Name Result Date Reference Range Unit Abnormali ty Flag CD4/CD8 Ratio Profile 35599 ----Monocytes(Absolute) 0.7 13988776 0.1-0.9 x10E3/uL ----Eos (Absolute) 0.3 37537737 0.0-0.4 x10E3/uL ----Baso (Absolute) 0.0 48468894 0.0-0.2 x10E3/uL ----Immature Granulocytes 0 64028953 % ----Immature Grans (Abs) 0.0 95510831 0.0-0.1 x10E3/uL ----NRBC EMBEDDED SYSTEMS DESIGNER [id number] ----Hematology Comments: EMBEDDED SYSTEMS DESIGNER [id number] ----Immature Cells EMBEDDED SYSTEMS DESIGNER 20150817 ----Neutrophils (Absolute) 4.5 78442714 1.4-7.0 x10E3/uL ----Lymphs (Absolute) 1.5 00732230 0.7-3.1 x10E3/uL ----MCH 31.8 35781033 26.6-33.0 pg ----MCV 93 28979365 79-97 fL ----Abs. CD 8 Suppressor 803 04008317 109-897 /uL ----Basos 0 52414030 % ----% CD 8 Pos. Lymph. 53.5 18278084 12.0-35.5 % H ----Eos 4 79374808 % ----CD4/CD8 Ratio 0.34 36199908 0.92-3.72 L ----Monocytes 10 51164302 % ----WBC 7.0 03280471 3.4-10.8 x10E3/uL ----Lymphs 22 60817237 % ----RBC 4.21 68901540 4.14-5.80 x10E6/uL ----Neutrophils 64 97914854 % ----Hemoglobin 13.4 04567203 12.6-17.7 g/dL ----Platelets 184 52732034 150-379 x10E3/uL ----RDW 14.5 45115272 12.3-15.4 % ----Hematocrit 39.2 79595452 37.5-51.0 % ----Absolute CD 4 [place] 276 74439808 359-1519 /uL L ----MCHC 34.2 31670202 31.5-35.7 g/dL ----% CD 4 Pos. Lymph. 18.4 66581729 30.8-58.5 % L Human Immunodeficiency Virus (HIV-1), Quantitative, Re al-time PCR (graph) 07798 ----HIV-1 RNA by PCR <20 59156318 copies/mL ----log10 HIV-1 RNA TNP 49931517 psu26figy/mL Metabolic Panel (14), Comprehensive ([facility]) 43071 ----Sodium, Serum 139 77683223 134-144 mmol/L ----BUN/Creatinine Ratio 18 79055259 9-20 ----Chloride, Serum 101 02016076 97-108 mmol/L ----Potassium, Serum 4.5 01424898 3.5-5.2 mmol/L ----Calcium, Serum 8.9 54756262 8.7-10.2 mg/dL ----Protein, Total, Serum 6.9 46025450 6.0-8.5 g/dL ----Carbon Dioxide, Total 23 29513838 18-29 mmol/L ----A/G Ratio 1.7 06912748 1.1-2.5 ----eGFR If NonAfricn Am 94 93833802 >59 mL/min/1.73 ----Bilirubin, Total 0.3 69032459 0.0-1.2 mg/dL ----eGFR If Africn Am 109 60295571 >59 mL/min/1.73 ----BUN 17 93558562 6-24 mg/dL ----Albumin, Serum 4.3 62504978 3.5-5.5 g/dL ----Globulin, Total 2.6 94409259 1.5-4.5 g/dL ----Creatinine, Serum 0.97 10078330 0.76-1.27 mg/dL ----ALT (SGPT) 16 20150817 0-44 IU/L ----Glucose, Serum 95 91983500 65-99 mg/dL ----Alkaline Phosphatase, S 90 59475314 39-117 IU/L ----AST (SGOT) 17 63933356 0-40 IU/L Immunizations Vaccine Administration Date Tdap August 17, 2015 Summary Purpose [employer]ClinicalWorks Submission
--- OUTSIDE RECORDS SUMMARY | 2019-07-24 20:34 | XMS REPORT ---
Author Tony Costello Organization [employer] Address Unknown Phone Unavailable Care Team Providers Care Contact Lens Manufacturer Name Role Phone Bia Tineo CP Unavailable [...] Inactive Problem Kaposi's sarcoma of skin 176.0 [place] ctive Problem Acquired immune deficiency syndrome (AIDS) 042 Active Problem terminologist (current) use of opiate analgesic V58.69 Active Problem Need for prophylactic vaccination and inoculation, Inf luenza V04.81 Inactive Problem Awwcnhpuch-ipvvbfc-qkibumkgi, combined [DTP] [DtaP] V0 6.1 Inactive Problem Need for prophylactic vaccin ation against streptococcus pneumoniae (pneumococcus) V03.82 Inactive Problem Essential hypertension, benign 401.1 Active Problem Unspecified essential hypertension 401.9 Inactive Problem Elevated blood pressure reading without diagnosi s of hypertension 796.2 Inactive Medications No Known Medications Results No Known Results Summary Purpose eClinicalWorks Submission
--- OUTSIDE RECORDS SUMMARY | 2019-07-24 20:34 | XMS REPORT ---
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
--- OUTSIDE RECORDS SUMMARY | 2019-07-24 20:34 | XMS REPORT ---
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) use of opiate analgesic V58.69 Active Problem Need for prophylactic vaccination and inoculation, Inf luenza V04.81 Inactive Problem Hqqieqlmuz-vkrqmmt-oamjhwluv, combined [DTP] [DtaP] V0 6.1 Inactive Problem Need for prophylactic vaccin ation against streptococcus pneumoniae (pneumococcus) V03.82 Inactive Problem Essential hypertension, benign 401.1 Active Problem Unspecified essential hypertension 401.9 Inactive Problem Elevated blood pressure reading without diagnosi s of hypertension 796.2 Inactive Medications No Known Medications Results No Known Results Summary Purpose [employer]ClinicalWorks Submission
--- OUTSIDE RECORDS SUMMARY | 2019-07-24 20:34 | XMS REPORT ---
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 Activ e 008180040 Problem Former smoker Z87.891 Active 511417 6 Problem Histoplasmosis B39.9 Active 69063 009 ALLERGIES No Information ENCOUNTERS Encounter Location Date Diagnosis [address] [address] Jul, [facility] [address] [phone] May, AIDS B20 [address] [address] Apr, AIDS [address] [address] Apr, AIDS [address] [address] Feb, [address] [address] Dec, [facility] [address] [phone] Dec, Human immunodeficiency virus (HIV) disease B20 [facility] [address] [id number] Sep, Human immunodeficiency virus (HIV) disease B20 ; Benign essential hypertension I10 and Histoplasmosis B39.[address] [facility] [address] [id number] June, AIDS B20 [facility] [address] [place] [address] Mar, [facility] [address] [place] [phone] Mar, AIDS B20 [facility] [address] [place], [place] [phone] Jan, Human immunodeficiency virus (HIV) disease B20 and Need for pneumococcal vaccine Z23 [facility] [address] [place] [address] Dec, Essential hypertension, benign 401.[address] [facility] [address] [id number] Nov, AIDS B20 [address] [address] Sep, [facility] [address] [phone] Aug, Human immunodeficiency virus (HIV) disease B20 ; Former smoker Z87.891 and Encounter for immunization Z23 [address] [address] June, [address] [phone] Apr, Human immunodeficiency virus (HIV) disease B20 ; Benign essential hypertension I10 and Histoplasmosis B39.[address] [address] Mar, [facility] [address] [id number] Feb, Acquired immune deficiency s yndrome B20 and Screening examination for sexually transmitted disease Z11.[address] [address] Dec, [address] [address] Dec, [facility] [address] [phone] Nov, Human immunodeficiency virus (HIV) disease B20 and Benign essential hypertension I10 [address] [place] [address] Sep, [facility] [address] [place] [address] Sep, [facility] [address] [place] [address] Sep, [facility] [address] [place] [phone] June, Human immunodeficiency virus (HIV) disease 042 and Need for pneumococcal vaccination V03.[address] [facility] [address] [place] [address] Apr, [facility] [address] [place] [address] Apr, [facility] [address] [place] [address] Mar, [facility] [address] [place] [phone] Feb, Acquired immune deficiency s yndrome (AIDS) [address] [facility] [address] [place] [address] Feb, Human immunodeficiency virus (HIV) disea se [address] 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 [address] [place] [address] 17 Oct, 2013 Nausea & vomiting 787.[address] [facility] [address] [place] [address] Oct, [facility] [address] [facility] [address] [place] [phone] 1 Oct, Unspecified Histoplasmosis without mention of manifestation 115.[address] [facility] [address] [place] [address] 10 Oct, [address] [facility] [address] [place] [address] Oct, Nausea & vomiting 787.01 [facility] [address] [facility] [address] [place], [place] [phone] 2 9 Sep, 2013 [facility] [address] [facility] [address] [place], [place] [phone] 2 8 Sep, 2013 [facility] [address] [facility] [address] [place], [place] [phone] 2 0 Jul, 2013 [facility] [address] [facility] [address] [place] [address], [place] [phone] 0 7 May, 2013 [facility] [address] [place] [facility] [address] May, [facility] [address] [place] [facility] [address] Feb, [facility] [address] [place] [facility] [address] Nov, [facility] [address] [facility] [address] Aug, [facility] [address] [facility] [address] May, [facility] [address] [place] [facility] [address] Dec, [facility] [address] [place] [facility] [address] Sep, [facility] [address] [place] [facility] [address] June, [facility] [address] [place] [facility] [address] Mar, [facility] [address] [facility] [address] [place], [place] [phone] 0 7 Nov, 2010 IMMUNIZATIONS No Known Immunizations SOCIAL HISTORY Never Assessed REASON FOR VISIT PLAN OF CARE VITAL SIGNS MEDICATIONS Medication Instructions Dosage Frequency Start Date End Date Duration S tatus Lisinopril 20 MG Orally once a day 1 tablet 24h 30 Active RESULTS No Results PROCEDURES No Known [...]
--- OUTSIDE RECORDS SUMMARY | 2019-07-24 20:34 | XMS REPORT ---
Author Tony Garland Organization e[employer]Works Address Unknown Phone Unavailable Care Team Providers Care Trimming Press Operator Name Role Phone MORTEZA PALOMO CP Unavailable Allergies, Adverse Reactions, Alerts Substance Reaction Event Type N.K.D.A. Info Not Available Non Drug Allergy Problems Problem Type Condition Code Onset Dates Condition Statu s Assessment Encounter for dental examination Z01.20 Active Assessment Elevated blood pressure reading without diagnosis of hypertension 796.2 Active Problem Elevated blood pressure reading without diagnosi s of hypertension 796.2 Active Medications Medication Code System Code Instructions Start Date End Date Status Dosage Truvada [facility] [address]-24 200-300 MG Orally Once a day 1 tablet Isentress [facility] [address]-84 not defi soo Procedures Procedure Coding System Code Date BITEWINGS - FOUR FILMS CPT-4 D0274 Jan 23, 015 PANORAMIC FILM SEE ALSO CODE 47734 CPT-4 D0330 Jan 23, 2015 PERIODIC ORAL EXAMINATION CPT-4 D0120 Jan Periodontal maint procedures CPT-4 D4910 Jan 23, 2015 Vital Signs Date/Time: Jan 23, 2015 Blood Pressure Diastolic 86 mmHg Blood Pressure Systolic 131 mmHg Results No Known Results Summary Purpose eClinicalWorks Submission
--- OUTSIDE RECORDS SUMMARY | 2019-07-24 20:34 | XMS REPORT ---
Author Author Tony Lizarraga [facility] Address [address] [place], [place] [id number] Care Team Providers Care Wood Boring Machine Operator Name Role Phone Deana Lizarraga Unavailable PROBLEMS Type Condition ICD9-CM Code [id number] Code Onset Dates Condition S tatus SNOMED Code Assessment Human immunodeficiency virus (HIV) disease B20 Jan, Active 07192247 Assessment Need for pneumococcal vaccine Z23 Jan, 2 016 Active 292715271 Problem Generalized anxiety disorder F41.1 A ctive 79870399 Problem Benign essential hypertension I10 Active 8271666 Problem AIDS B20 Active 87793021 Problem Former smoker Z87.891 Active 375161 6 Problem Histoplasmosis B39.9 Active 36510 009 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 Unknown Non Drug Allergy Jan, Unknown SOCIAL HISTORY No smoking Hx information available PLAN OF CARE Activity Details Pending Test Human Immunodeficiency Virus (HIV-1), Quantitative, Real-time PCR (graph) 09021 Pending Test Metabolic Panel (14), Compre hensive (CMP) 55667 Pending Test CD4/CD8 Ratio Profile 56850 03/21/15, prn,Reason: VITAL SIGNS Height 72 in 2016-01-25 Weight 217.7 lbs 2016-01-25 Temperature 97.2 degrees Fahrenheit 2016-01-25 Heart Rate 68 /min 2016-01-25 Respiratory Rate 16 /min 2016-01-25 BMI 29.52 kg/m2 2016-01-25 Blood pressure systolic 128 mm Hg 2016-01-25 Blood pressure diastolic 82 mm Hg 2016-01-25 MEDICATIONS Medication Instructions Dosage Frequency Start Date End Date Duration S tatus Descovy 200-25 mg Orally Once a day 1 Tablet 24h Jan, 30 days Active BusPIRone HCl 10 MG TAKE ONE TABLET BY MOUTH 3 TIMES A DAY. Active Isentress 400 MG Orally two times daily 1 tablet Active Ondansetron HCl 8 MG Orally three times daily 1 tablet as needed Oct, 30 day(s) Active Lisinopril 20 MG Orally once a day 1 tablet 24h Aug, 30 days Active Itraconazole 200 MG Orally two times daily 1 capsules after a meal 30 Active RESULTS Name Result Date Reference Range Human Immunodeficiency Virus (HIV-1), Quantitative, Re al-time PCR (graph) 74496 2016-01-25 HIV-1 RNA by PCR <20 log10 HIV-1 RNA TNP Metabolic Panel (14), Comprehensive (CMP) 84101 2016-01-25 Glucose, Serum 109 65-99 BUN 12 6-24 Creatinine, Serum 0.99 0.76-1.27 eGFR If NonAfricn Am 92 >59 eGFR If Africn Am 106 >59 BUN/Creatinine Ratio 12 9-20 Sodium, Serum 139 134-144 Potassium, Serum 4.7 3.5-5.2 Chloride, Serum 100 96-106 Carbon Dioxide, Total 23 18-29 Calcium, Serum 8.9 8.7-10.2 Protein, Total, Serum 7.0 6.0-8.5 Albumin, Serum 4.3 3.5-5.5 Globulin, Total 2.7 1.5-4.5 A/G Ratio 1.6 1.1-2.5 Bilirubin, Total 0.3 0.0-1.2 Alkaline Phosphatase, S 96 39-117 AST (SGOT) 28 0-40 ALT (SGPT) 42 0-44 CD4/CD8 Ratio Profile 51456 2016-01-25 Absolute CD 4 [place] [phone] % CD 4 Pos. Lymph. 19.1 30.8-58.5 Abs. CD 8 Suppressor 906 109-897 % CD 8 Pos. Lymph. 53.3 12.0-35.5 CD4/CD8 Ratio 0.36 0.92-3.72 WBC 8.1 3.4-10.8 RBC 4.49 4.14-5.80 Hemoglobin 14.5 12.6-17.7 Hematocrit 42.8 37.5-51.0 MCV 95 79-97 MCH 32.3 26.6-33.0 MCHC 33.9 31.5-35.7 RDW 13.5 12.3-15.4 Platelets 197 150-379 Neutrophils 67 Lymphs 21 Monocytes 7 Eos 5 Basos 0 Immature Cells FUNERAL HOME MAKEUP ARTIST Neutrophils (Absolute) 5.4 1.4-7.0 Lymphs (Absolute) 1.7 0.7-3.1 Monocytes(Absolute) 0.6 0.1-0.9 Eos (Absolute) 0.4 0.0-0.4 Baso (Absolute) 0.0 0.0-0.2 Immature Granulocytes 0 Immature Grans (Abs) 0.0 0.0-0.1 NRBC FUNERAL HOME MAKEUP ARTIST Hematology Comments: FUNERAL HOME MAKEUP ARTIST PROCEDURES Procedure Date Ordered Related Diagnosis Body Site T CELL, ABSOLUTE COUNT/RATIO Jan 25, 2016 COMPREHEN METABOLIC PANEL Jan 25, 2016 ADMN PNEUMCOC VAC NO FEE SCHED DAY Jan 25, 2016 Pneumococcal polysaccharide PPV23 Jan 25, 2016 Office Visit, Est Pt., Level 3 Jan 25, 2016 IMMUNIZATION ADMIN Jan 25, 2016 IMMUNIZATIONS Vaccine Route Administration Date Status Pneumococcal polysaccharide PPV23 IM Intramuscular Jan 25, 2016 Administered
--- OUTSIDE RECORDS SUMMARY | 2019-07-24 20:34 | XMS REPORT ---
Author Author Tony HUERTA Organization e[employer]Works Address Unknown Phone Unavailable Care Team Providers Care Director Of Retail Analytics Name Role Phone JOANNA HUERTA CP Unavailable Allergies No Known Allergies Problems Problem Type Condition Code Onset Dates Condition Statu s Problem Elevated blood pressure reading without diagnosi s of hypertension 796.2 Active Medications No Known Medications Results No Known Results Summary Purpose eClinicalWorks Submission
--- OUTSIDE RECORDS SUMMARY | 2019-07-24 20:34 | XMS REPORT ---
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 Activ e 082849167 Problem Former smoker Z87.891 Active 997221 6 Problem Histoplasmosis B39.9 Active 82587 009 ALLERGIES No Information ENCOUNTERS Encounter Location Date Diagnosis [address] [address] Jul, Benign essential hypertension I10 [address] [address] Jul, [facility] [address] [phone] May, AIDS B20 [address] [address] Apr, AIDS B20 [address] [address] Apr, AIDS [address] [address] Feb, [address] [address] Dec, [facility] [address] [phone] Dec, Human immunodeficiency virus (HIV) disease B20 [facility] [address] [phone] Sep, Human immunodeficiency virus (HIV) disease B20 ; Benign essential hypertension I10 and Histoplasmosis B39.9 [facility] [address] [place] [phone] June, AIDS B20 [address] [place] [address] Mar, [facility] [address] [phone] Mar, AIDS B20 [facility] [address] [place] [phone] Jan, Human immunodeficiency virus (HIV) disease B20 and Need for pneumococcal vaccine Z23 [facility] [address] [place] [address] Dec, Essential hypertension, benign 401.1 [facility] [address] [phone] Nov, AIDS B20 [address] [address] Sep, [address] [phone] Aug, Human immunodeficiency virus (HIV) disease B20 ; Former smoker Z87.891 and Encounter for immunization Z23 [address] [address] June, [address] [phone] Apr, Human immunodeficiency virus (HIV) disease B20 ; Benign essential hypertension I10 and Histoplasmosis B39.[address] [address] Mar, [address] [id number] Feb, Acquired immune deficiency s yndrome B20 and Screening examination for sexually transmitted disease Z11.[address] [address] Dec, [address] [address] Dec, [address] [phone] Nov, Human immunodeficiency virus (HIV) disease B20 and Benign essential hypertension I10 [facility] [address] [place] [address] Sep, [facility] [address] [place] [address] Sep, [facility] [address] [place] [address] Sep, [facility] [address] [place] [phone] June, Human immunodeficiency virus (HIV) disease 042 and Need for pneumococcal vaccination V03.82 [facility] [address] [place] [address] Apr, [facility] [address] [place] [address] Apr, [facility] [address] [place] [address] Mar, [facility] [address] [place] [phone] Feb, Acquired immune deficiency s yndrome (AIDS) 042 [facility] [address] [place] [address] Feb, Human immunodeficiency virus (HIV) disea se 042 [facility] [address] [place] [address] Dec, [facility] [address] [id number] Nov, Human immunodeficiency virus (HIV) disease 042 ; 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 [address] [place], [place] [phone] 1 Oct, Unspecified Histoplasmosis without mention of manifestation 115.90 [facility] [address] [place] [address] 10 Oct, 2013 [facility] [address] [place] [address] 09 Oct, 2013 Nausea & vomiting 787.01 [facility] [place] [facility] [address] [facility] [address] [place] [phone] 2 9 Sep, 2013 [facility] [place] [facility] [address] [facility] [address] [place] [phone] 2 8 Sep, 2013 [facility] [address] [facility] [address] [place] [phone] 2 0 Jul, [address] [facility] [address] [facility] [address] [place] [phone] 0 7 May, 2013 [facility] [address] [place] [facility] [address] May, [facility] [address] [place] [address] Feb, [facility] [address] [place] [facility] [address] Nov, [facility] [address] [place] [address] Aug, [facility] [address] [place] [address] May, [facility] [address] [place] [address] Dec, [facility] [address] [place] [address] Sep, [facility] [address] [place] [address] June, [facility] [address] [place] [facility] [address] Mar, [facility] [address] [phone] 0 7 Nov, 2010 IMMUNIZATIONS No Known Immunizations SOCIAL HISTORY Never Assessed REASON FOR VISIT refill PLAN OF CARE VITAL SIGNS MEDICATIONS Medication Instructions Dosage Frequency Start Date End Date Duration S tatus Itraconazole 100 Orally two times daily 2 capsules after a meal 30 Active Descovy 200-25 mg Orally Once a day 1 Tablet 24h 30 Active Lisinopril 20 MG Orally once a day 1 tablet 24h 30 Active Isentress 400 MG Orally Twice a day 1 tablet 12h 30 days Active BusPIRone HCl 10 MG TAKE ONE TABLET BY MOUTH 3 TIMES A DAY. Active Itraconazole 200 MG Orally two times daily 1 capsules after a meal 30 Active Ondansetron HCl 8 MG Orally three times daily 1 tablet as needed Oct, 30 day(s) Active RESULTS No Results PROCEDURES No Known [...]
--- OUTSIDE RECORDS SUMMARY | 2019-07-24 20:34 | XMS REPORT ---
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
--- OUTSIDE RECORDS SUMMARY | 2019-07-24 20:34 | XMS REPORT ---
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
--- OUTSIDE RECORDS SUMMARY | 2019-07-24 20:34 | XMS REPORT ---
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 Activ e 237761055 Problem Former smoker Z87.891 Active 052432 6 Problem Histoplasmosis B39.9 Active 81770 009 ALLERGIES No Known Allergies SOCIAL HISTORY Never Assessed PLAN OF CARE Activity Details Follow Up 05/22/16, prn Reason: Pending Test Human Immunodeficiency Virus (HIV-1), Quantitative, Real-time PCR (graph) 32219 Pending Test Metabolic Panel (14), Compre hensive (CMP) 88576 Pending Test CD4/CD8 Ratio Profile 74051 VITAL SIGNS Height 72 in 2016-12-12 Weight 211 lbs 2016-12-12 Temperature 97.7 degrees Fahrenheit 2016-12-12 Heart Rate 67 /min 2016-12-12 Respiratory Rate 16 /min 2016-12-12 Oximetry 98 % 2016-12-12 BMI 28.61 kg/m2 2016-12-12 Blood pressure systolic 130 mm Hg 2016-12-12 Blood pressure diastolic 86 mm Hg 2016-12-12 MEDICATIONS Medication Instructions Dosage Frequency Start Date End Date Duration S tatus Ondansetron HCl 8 MG Orally three times daily 1 tablet as needed Oct, 30 day(s) Active Itraconazole 200 MG Orally two times daily 1 capsules after a meal 30 Active Descovy 200-25 mg Orally Once a day 1 Tablet 24h Jan, 30 days Active Lisinopril 20 MG Orally once a day 1 tablet 24h Aug, 30 days Active BusPIRone HCl 10 MG TAKE ONE TABLET BY MOUTH 3 TIMES A DAY. Active Itraconazole 100 Orally two times daily 2 capsules after a meal 30 Active Isentress 400 MG TAKE ONE TABLET BY MOUTH 2 TIMES A DAY Active RESULTS No Results PROCEDURES Procedure Date Ordered Result Body Site Billed by outside source Dec 12, 2016 IMMUNIZATIONS No Known Immunizations MEDICAL (GENERAL) HISTORY [...]
--- OUTSIDE RECORDS SUMMARY | 2019-07-24 20:35 | XMS REPORT | Continuity of Care Document ---
Author Organization Unknown Address Unknown Phone Unavailable Allergies There is no data. Medications There is no data. Problems Date Dx Coded Attending Type Code Diagnosis Diagnosed By 05/05/2014 JOANNA HUERTA DO 796.2 ELEVATED BLOOD PRESSURE READING WITHOUT DIAGNOSIS OF HYPERTENSION Procedures Code Description Performed By Per formed On CARO Cain PRESSURE CHECK 05/05/2014 Results Test Result Range CD4/CD8 Ratio Profile [id number] - 12/15/16 1 0:15 WBC 7.6 x10E3/uL 3.4-10.8 RBC 3.96 x10E6/uL 4.14-5.80 Hemoglobin 12.9 g/dL 12.6-17.7 Hematocrit 41.9 % 37.5-51.0 MCV 106 fL 79-97 MCH 32.6 pg 26.6-33.0 MCHC 30.8 g/dL 31.5-35.7 RDW 13.8 % 12.3-15.4 Platelets 230 x10E3/uL 150-379 Neutrophils 76 % Not Estab. Lymphs 17 % Not Estab. Monocytes 5 % Not Estab. Eos 2 % Not Estab. Basos 0 % Not Estab. Immature Cells HEADLIGHT ADJUSTER NRG Neutrophils (Absolute) 5.7 x10E3/uL 1.4- 7.0 Lymphs (Absolute) 1.3 x10E3/uL 0.7-3.1 Monocytes(Absolute) 0.3 x10E3/uL 0.1-0.9 Eos (Absolute) 0.2 x10E3/uL 0.0-0.4 Baso (Absolute) 0.0 x10E3/uL 0.0-0.2 Immature Granulocytes 0 % Not Esta b. Immature Grans (Abs) 0.0 x10E3/uL 0.0-0. 1 NRBC HEADLIGHT ADJUSTER NRG Hematology Comments: HEADLIGHT ADJUSTER NRG Absolute CD 4 Kimball 267 /uL [phone] % CD 4 Pos. Lymph. 20.5 % 30.8-58.5 Abs. CD 8 Suppressor 711 /uL 109-897 % CD 8 Pos. Lymph. 54.7 % 12.0-35.5 CD4/CD8 Ratio 0.37 0.92-3.72 Human Immunodeficiency Virus (HIV-1), Qu antitative, Real-time PCR (graph) [id number] - 08/28/17 10:15 HIV-1 RNA by PCR <20 copies/mL NRG log10 HIV-1 RNA TNP ycn33asgm/mL NRG Metabolic Panel (14), Comprehensive (CMP ) 57655 - 08/28/17 10:15 Glucose, Serum 117 mg/dL 65-99 BUN 23 mg/dL 6-24 Creatinine, Serum 1.11 mg/dL 0.76-1.27 eGFR If NonAfricn Am 79 mL/min/1.73 >59 eGFR If Africn Am 91 mL/min/1.73 >59 BUN/Creatinine Ratio 21 9-20 Sodium, Serum 138 mmol/L 134-144 Potassium, Serum 4.8 mmol/L 3.5-5.2 Chloride, Serum 102 mmol/L 96-106 Carbon Dioxide, Total 23 mmol/L 20-29 Calcium, Serum 9.3 mg/dL 8.7-10.2 Protein, Total, Serum 7.6 g/dL 6.0-8.5 Albumin, Serum 4.6 g/dL 3.5-5.5 Globulin, Total 3.0 g/dL 1.5-4.5 A/G Ratio 1.5 1.2-2.2 Bilirubin, Total 0.3 mg/dL 0.0-1.2 Alkaline Phosphatase, S 119 IU/L 39-117 AST (SGOT) 20 IU/L 0-40 ALT (SGPT) 17 IU/L 0-44 CD4/CD8 Ratio Profile [id number] - 08/28/17 1 0:15 WBC 9.4 x10E3/uL 3.4-10.8 RBC 4.35 x10E6/uL 4.14-5.80 Hemoglobin 14.1 g/dL 13.0-17.7 Hematocrit 42.9 % 37.5-51.0 MCV 99 fL 79-97 MCH 32.4 pg 26.6-33.0 MCHC 32.9 g/dL 31.5-35.7 RDW 13.1 % 12.3-15.4 Platelets 256 x10E3/uL 150-379 Neutrophils 66 % Not Estab. Lymphs 23 % Not Estab. Monocytes 7 % Not Estab. Eos 4 % Not Estab. Basos 0 % Not Estab. Immature Cells HEADLIGHT ADJUSTER NRG Neutrophils (Absolute) 6.3 x10E3/uL 1.4- 7.0 Lymphs (Absolute) 2.1 x10E3/uL 0.7-3.1 Monocytes(Absolute) 0.6 x10E3/uL 0.1-0.9 Eos (Absolute) 0.3 x10E3/uL 0.0-0.4 Baso (Absolute) 0.0 x10E3/uL 0.0-0.2 Immature Granulocytes 0 % Not Esta b. Immature Grans (Abs) 0.0 x10E3/uL 0.0-0. 1 NRBC HEADLIGHT ADJUSTER NRG Hematology Comments: HEADLIGHT ADJUSTER NRG Absolute CD 4 Kimball 454 /uL 359-1519 % CD 4 Pos. Lymph. 21.6 % 30.8-58.5 Abs. CD 8 Suppressor 1073 /uL 109-897 % CD 8 Pos. Lymph. 51.1 % 12.0-35.5 CD4/CD8 Ratio 0.42 0.92-3.72 Human Immunodeficiency Virus (HIV-1), Qu antitative, Real-time PCR (graph) [id number] - 11/06/17 10:53 HIV-1 RNA by PCR <20 copies/mL NRG log10 HIV-1 RNA TNP vbr01tete/mL NRG Metabolic Panel (14), Comprehensive (CMP ) 00989 - 11/06/17 10:53 Glucose, Serum 92 mg/dL 65-99 BUN 17 mg/dL 6-24 Creatinine, Serum 0.94 mg/dL 0.76-1.27 eGFR If NonAfricn Am 96 mL/min/1.73 >59 eGFR If Africn Am 111 mL/min/1.73 >5 9 BUN/Creatinine Ratio 18 9-20 Sodium, Serum 140 mmol/L 134-144 Potassium, Serum 5.2 mmol/L 3.5-5.2 Chloride, Serum 105 mmol/L 96-106 Carbon Dioxide, Total 22 mmol/L 20-29 Calcium, Serum 9.2 mg/dL 8.7-10.2 Protein, Total, Serum 7.3 g/dL 6.0-8.5 Albumin, Serum 4.1 g/dL 3.5-5.5 Globulin, Total 3.2 g/dL 1.5-4.5 A/G Ratio 1.3 1.2-2.2 Bilirubin, Total 0.2 mg/dL 0.0-1.2 Alkaline Phosphatase, S 115 IU/L 39-117 AST (SGOT) 84 IU/L 0-40 ALT (SGPT) 179 IU/L 0-44 CD4/CD8 Ratio Profile [id number] - 11/06/17 1 0:53 WBC 5.7 x10E3/uL 3.4-10.8 RBC 4.10 x10E6/uL 4.14-5.80 Hemoglobin 13.2 g/dL 13.0-17.7 Hematocrit 39.4 % 37.5-51.0 MCV 96 fL 79-97 MCH 32.2 pg 26.6-33.0 MCHC 33.5 g/dL 31.5-35.7 RDW 12.8 % 12.3-15.4 Platelets 216 x10E3/uL 150-379 Neutrophils 63 % Not Estab. Lymphs 20 % Not Estab. Monocytes 13 % Not Estab. Eos 4 % Not Estab. Basos 0 % Not Estab. Immature Cells HEADLIGHT ADJUSTER NRG Neutrophils (Absolute) 3.6 x10E3/uL 1.4- 7.0 Lymphs (Absolute) 1.1 x10E3/uL 0.7-3.1 Monocytes(Absolute) 0.8 x10E3/uL 0.1-0.9 Eos (Absolute) 0.2 x10E3/uL 0.0-0.4 Baso (Absolute) 0.0 x10E3/uL 0.0-0.2 Immature Granulocytes 0 % Not Esta b. Immature Grans (Abs) 0.0 x10E3/uL 0.0-0. 1 NRBC HEADLIGHT ADJUSTER NRG Hematology Comments: HEADLIGHT ADJUSTER NRG Absolute CD 4 Kimball 246 /uL 359-1519 % CD 4 Pos. Lymph. 22.4 % 30.8-58.5 Abs. CD 8 Suppressor 517 /uL 109-897 % CD 8 Pos. Lymph. 47.0 % 12.0-35.5 CD4/CD8 Ratio 0.48 0.92-3.72 CD4/CD8 Ratio Profile [id number] - 01/15/18 1 0:13 WBC 9.2 x10E3/uL 3.4-10.8 RBC 3.97 x10E6/uL 4.14-5.80 Hemoglobin 12.5 g/dL 13.0-17.7 Hematocrit 39.5 % 37.5-51.0 MCV 100 fL 79-97 MCH 31.5 pg 26.6-33.0 MCHC 31.6 g/dL 31.5-35.7 RDW 13.5 % 12.3-15.4 Platelets 287 x10E3/uL 150-379 Neutrophils TNP NRG Lymphs TNP NRG Monocytes TNP NRG Eos TNP NRG Basos HEADLIGHT ADJUSTER NRG Immature Cells HEADLIGHT ADJUSTER NRG Neutrophils (Absolute) HEADLIGHT ADJUSTER NRG Lymphs (Absolute) TNP NRG Monocytes(Absolute) HEADLIGHT ADJUSTER NRG Eos (Absolute) TNP NRG Baso (Absolute) TNP NRG Immature Granulocytes HEADLIGHT ADJUSTER NRG Immature Grans (Abs) HEADLIGHT ADJUSTER NRG NRBC HEADLIGHT ADJUSTER NRG Hematology Comments: Note: NRG Absolute CD 4 Kimball TNP NRG % CD 4 Pos. Lymph. 21.8 % 30.8-58.5 Abs. CD 8 Suppressor TNP NRG % CD 8 Pos. Lymph. 51.5 % 12.0-35.5 CD4/CD8 Ratio 0.42 0.92-3.72 Human Immunodeficiency Virus (HIV-1), Qu antitative, Real-time PCR (graph) [id number] - 08/20/18 11:12 HIV-1 RNA by PCR 100 copies/mL NRG log10 HIV-1 RNA 2.000 ori65nbjs/mL NRG PDF . NRG Cytomegalovirus (CMV) Ab, IgG - 12/17/18 12:23 Cytomegalovirus (CMV) Ab, IgG >10.00 U/mL 0.00-0.59 Histoplasma Galactomannan Antigen EIA, U r[place] [id number] - 03/18/19 12:04 Histoplasma Gal'fidelina Ag Ur <0.5 < 0.5 ng/mL Disclaimer: NRG Encounters ACCT No. Visit Date/Time Discharge Status Pt. Type Provider Facility Loc./Unit Complaint [id number] 08/20/2018 08:00:00 08/20/2018 23:59: 59 CLS [facility] [id number] 03/18/2019 08:00:00 Document Registration [id number] 12/17/2018 08:00:00 Document Registration [id number] 08/20/2018 08:00:00 Document Registration [id number] 01/15/2018 08:00:00 Document Registration [id number] 11/06/2017 08:00:00 Document Registration [id number] 08/28/2017 11:45:00 Document Registration [id number] 12/12/2016 08:00:00 Document Registration [id number] 05/05/2014 13:36:00 05/05/2014 23:59: 59 [place] [id number] 02/19/2018 13:20:00 02/19/2018 23:59:5 9 CLS Outpatient [facility]
--- NOTE | 2019-07-24 21:44 | ED Headache ---
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 He reports having history of headaches but usually they go away with aspirin. He took aspirin on Thursday with no improvement. His symptoms continued tonight so he came to the emergency department. He also feels dizzy and lightheaded. He overall just feels weak. He has had no fever or chills. He denies any cough or congestion. Nothing seems to make the headache better or worse. Allergies and Home Medications Allergies Coded Allergies: No Known Drug Allergies (Unverified , 07/24/19) Home Medications Amoxicillin/Potassium Clav 1 Each Tablet, 1 EACH PO BID WITH MEALS Prescribed by: ARMANDO SIMEON on 07/24/192246 Fluticasone Propionate 9.9 Ml Matthews.susp, 2 SPRAY NS DAILY 2 SPRAYS PER NOSTRIL DAILY X 2 DAYS THEN 1 SPRAY DAILY Prescribed by: ARMANDO SIMEON on 07/24/192246 Patient Home Medication List Home Medication List Reviewed: Yes Review of Systems Review of Systems Constitutional: No chills; dizziness; No fever Eyes: Denies Blurred Vision, Denies Photophobia Ears, Nose, Mouth, Throat: denies ear pain Respiratory: No cough Cardiovascular: No chest pain Gastrointestinal: No nausea, No vomiting Genitourinary: no symptoms reported Musculoskeletal: no symptoms reported Skin: No rash Psychiatric/Neurological: Headache; Denies Numbness, Denies Paresthesia, Denies Weakness Past Rckbgme-Tptlti-Jbjdpf Hx Past Med/Social Hx: Reviewed Nursing Past Med/Soc Hx Patient Social History Alcohol Use: Denies Use Recreational Drug Use: No Smoking Status: Never a Smoker 2nd Hand Smoke Exposure: No Recent Foreign Travel: No Contact w/Someone Who Travel: No Recent Infectious Disease Expo: No Recent Hopitalizations: No (hiv +) Physical Abuse: No Sexual Abuse: No Mistreated: No Fear: No Seasonal Allergies Seasonal Allergies: No Past Medical History Surgeries: No Respiratory: No Cardiac: Yes Hypertension Neurological: No Genitourinary: No Gastrointestinal: No Musculoskeletal: No Endocrine: No HEENT: No Cancer: No Psychosocial: No Integumentary: No Physical Exam Vital Signs Vital Signs - First Documented 07/24/19 20:58 Temp 37.1 Pulse 109 Resp 16 B/P (MAP) 138/49 (78) Pulse Ox 99 O2 Delivery Room Air Capillary Refill : Less Than 3 Seconds Height, Weight, BMI Height: '" Weight: lbs. oz. kg; 31.00 BMI Method: General Appearance: WD/WN, mild distress HEENT: PERRL/EOMI, pharynx normal, other (tender to palpation over maxillary sinuses. Cerumen impaction bilaterally so unable to visualize tympanic membrane) Neck: non-tender, full range of motion, supple, normal inspection Cardiovascular: normal peripheral pulses, regular rate, rhythm Respiratory: chest non-tender, lungs clear, normal breath sounds Extremities: normal range of motion, non-tender, normal capillary refill Psychiatric: alert, oriented x 3, depressed affect Crainal Nerves: normal hearing, normal speech, PERRL Motor/Sensory: no motor deficit, no sensory deficit Skin: normal color, warm/dry; No rash Progress/Results/Core Measures Results/Orders Lab Results Laboratory Tests Test 07/24/19 22:00 Range/Units White Blood Count 12.1 H 4.3-11.0 10^3/uL Red Blood Count 4.11 L 4.35-5.85 10^6/uL Hemoglobin 13.9 13.3-17.7 G/DL Hematocrit 41 40-54 % Mean Corpuscular Volume 99 80-99 FL Mean Corpuscular Hemoglobin 34 25-34 PG Mean Corpuscular Hemoglobin Concent 34 32-36 G/DL Red Cell Distribution Width 12.1 10.0-14.5 % Platelet Count 210 130-400 10^3/uL Mean Platelet Volume 10.3 7.4-10.4 FL Neutrophils (%) (Auto) 72 42-75 % Lymphocytes (%) (Auto) 15 12-44 % Monocytes (%) (Auto) 12 0-12 % Eosinophils (%) (Auto) 1 0-10 % Basophils (%) (Auto) 0 0-10 % Neutrophils # (Auto) 8.7 H 1.8-7.8 X 10^3 Lymphocytes # (Auto) 1.8 1.0-4.0 X 10^3 Monocytes # (Auto) 1.4 H 0.0-1.0 X 10^3 Eosinophils # (Auto) 0.1 0.0-0.3 10^3/uL Basophils # (Auto) 0.1 0.0-0.1 10^3/uL Sodium Level 135 135-145 MMOL/L Potassium Level 4.6 3.6-5.0 MMOL/L Chloride Level 97 L 98-107 MMOL/L Carbon Dioxide Level 23 21-32 MMOL/L Anion Gap 15 H 5-14 MMOL/L Blood Urea Nitrogen 22 H 7-18 MG/DL Creatinine 1.11 0.60-1.30 MG/DL Estimat Glomerular Filtration Rate > 60 BUN/Creatinine Ratio 20 Glucose Level 120 H 70-105 MG/DL Calcium Level 9.5 8.5-10.1 MG/DL Corrected Calcium 9.3 8.5-10.1 MG/DL Total Bilirubin 0.7 0.1-1.0 MG/DL Aspartate Amino Transf (AST/SGOT) 18 5-34 U/L Alanine Aminotransferase (ALT/SGPT) 15 0-55 U/L Alkaline Phosphatase 68 40-136 U/L Total Protein 8.0 6.4-8.2 GM/DL Albumin 4.2 3.2-4.5 GM/DL My Orders Orders - ARMANDO SIMEON MD Ketorolac Injection (Toradol Injection) (07/24/19 21:53) Ns Iv 1000 Ml (Sodium Chloride 0.9%) (07/24/19 21:53) Dexamethasone Injection (Decadron Inject (07/24/19 21:53) Ed Iv/Invasive Line Start (07/24/19 21:54) Cbc With Automated Diff (07/24/19 21:54) Comprehensive Metabolic Panel (07/24/19 21:54) Ct Head Wo (07/24/19 21:54) Amoxicillin/Clavulanate Tablet (Augmenti (07/24/19 22:44) Vital Signs/I&O 07/24/19 20:58 Temp 37.1 Pulse 109 Resp 16 B/P (MAP) 138/49 (78) Pulse Ox 99 O2 Delivery Room Air Blood Pressure Mean: 78 Progress Progress Note #1: Progress Note Patient states he drove himself so we will try Toradol and Decadron for migraine headache. Will also give some IV fluids for hydration and obtain a CT scan in addition to blood work to look for other pathology causing his symptoms. Progress Note #2: Time: 22:33 Progress Note Labs show mild elevation of his white blood cell count 12.1. His chemistry. Stable with mild elevation of BUN for possible dehydration. On my review of his CT head he has a left maxillary sinusitis. Unless radiologist sees something more mild treat for sinusitis and discharge to home. Counseled to check back with clinic for continued concerns. Diagnostic Imaging Diagonstic Imaging: CT Plain Films/CT/US/NM/MRI: head Comments No acute intracranial process. Left Maxillary sinusitis. Reviewed: Reviewed Night Hawk Study, Reviewed by Me Departure Impression Primary Impression: Left maxillary sinusitis Additional Impression: Headache Qualified Codes: R51 - Headache Disposition: 01 HOME, SELF-CARE Condition: Stable Departure-Patient Inst. Decision time for Depature: 22:38 Referrals: NO,LOCAL PHYSICIAN (PCP) Primary Care Physician CRISSY CARDONA MD Patient Instructions: Headache, Adult (DC), Sinus Headache (DC), Sinusitis, Adult (DC) Add. Discharge Instructions: stay well hydrated and get plenty of rest. Take your medicine as prescribed. Check with clinic if not improving All discharge instructions reviewed with patient and/or family. Voiced understanding. Scripts Fluticasone Propionate (Flonase Allergy Relief) 9.9 Ml Matthews.susp 2 SPRAY NS DAILY for sinusitis for 30 Days, #1 EACH 0 Refills 2 SPRAYS PER NOSTRIL DAILY X 2 DAYS THEN 1 SPRAY DAILY Prov: ARMANDO SIMEON MD 07/24/19 Amoxicillin/Potassium Clav (Amox Tr-K Clv 875-125 mg Tab) 1 Each Tablet 1 EACH PO BID WITH MEALS for sinusitis for 7 Days, #14 TAB 0 Refills Prov: ARMANDO SIMEON MD 07/24/19 ARMANDO SIMEON MD Jul 24, 2019 21:44
[2019-07-24] MEDS ORDERED: KETOROLAC 30 MG/ML VIAL IVP STA (21:53)
[2019-07-24] MEDS ORDERED: NS IV 1000 ML 1,000 ML IV STA (21:53)
[2019-07-24] MEDS ORDERED: DEXAMETHASONE 10 MG/ML (DECADRON) 1 ML VIAL IV STA (21:53)
[2019-07-24 22:10] LABS: HEMATOCRIT 41 % (40-54); HEMOGLOBIN 13.9 G/DL (13.3-17.7); MEAN CORPUSCULAR HEMOGLOBIN 34 PG (25-34); MEAN CORPUSCULAR HGB CONC 34 G/DL (32-36); MEAN CORPUSCULAR VOLUME 99 FL (80-99); PLATELET COUNT 210 10^3/uL (130-400); RED CELL DISTRIBUTION WIDTH 12.1 % (10.0-14.5); WHITE BLOOD COUNT 12.1 10^3/uL (4.3-11.0)
[2019-07-24 22:11] LABS: BASOPHILS # (AUTO) 0.1 10^3/uL (0.0-0.1); BASOPHILS % (AUTO) 0 % (0-10); EOSINOPHILS # (AUTO) 0.1 10^3/uL (0.0-0.3); EOSINOPHILS % (AUTO) 1 % (0-10); LYMPHOCYTES # (AUTO) 1.8 X 10^3 (1.0-4.0); LYMPHOCYTES % (AUTO) 15 % (12-44); MEAN PLATELET VOLUME 10.3 FL (7.4-10.4); MONOCYTES # (AUTO) 1.4 X 10^3 (0.0-1.0); MONOCYTES % (AUTO) 12 % (0-12); NEUTROPHILS # (AUTO) 8.7 X 10^3 (1.8-7.8); NEUTROPHILS % (AUTO) 72 % (42-75)
[2019-07-24 22:28] LABS: ALANINE AMINOTRANSFERASE 15 U/L (0-55); ALBUMIN 4.2 GM/DL (3.2-4.5); ALKALINE PHOSPHATASE 68 U/L (40-136); BILIRUBIN,TOTAL 0.7 MG/DL (0.1-1.0); BUN/CREATININE RATIO 20; CALCIUM 9.5 MG/DL (8.5-10.1); CARBON DIOXIDE 23 MMOL/L (21-32); CHLORIDE 97 MMOL/L (98-107); CREATININE SERUM 1.11 MG/DL (0.60-1.30); GFR ESTIMATED > 60; GLUCOSE 120 MG/DL (70-105); POTASSIUM 4.6 MMOL/L (3.6-5.0); SODIUM 135 MMOL/L (135-145)
[2019-07-24] MEDS ORDERED: AUGMENTIN 875 MG TAB (AMOXICILLIN/CLAVULANATE) PO STA (22:44)
[2019-07-24] MEDS ORDERED: FLUT9.9S NS (22:47)
[2019-07-24] MEDS ORDERED: AMOX1TAB12 PO (22:47)
[2019-07-24 22:56] VITALS: BP 131/83
--- NOTE | 2019-07-25 05:40 | Diagnostic Imaging Report ---
PROCEDURE: CT head without contrast. TECHNIQUE: Multiple contiguous axial images were obtained through the brain without the use of intravenous contrast. Auto Exposure Controls were utilized during the CT exam to meet ALARA standards for radiation dose reduction. INDICATION: Headache COMPARISON: None available FINDINGS: No intracranial hemorrhage. No intracranial mass, mass effect, midline shift, herniation, hydrocephalus, or extra-axial fluid collection. No definite CT evidence of an acute ischemic infarction. The orbits are unremarkable. Significant mucosal thickening within the left maxillary sinus with additional opacification of scattered left ethmoid air cells. Small amount of fluid within the left maxillary sinus. The paranasal sinuses are otherwise clear. The calvarium and extracalvarial soft tissues are unremarkable. IMPRESSION: No acute intracranial abnormality. Left-sided paranasal sinus disease with findings suspicious for left maxillary sinusitis. Agree with preliminary interpretation. Dictated by: Dictated on workstation # [id number]
== END 2019-07-24 22:56 | disposition home or self-care (01) ==
LOC: ER FS 20:27
DX: J01.00 Acute maxillary sinusitis, unspecified (principal)
CPT/HCPCS: 36415; 70450; 80053; 85025